=== PATIENT | male | born 1950 | race Caucasian/White ===

== ENCOUNTER 2020-09-25 15:57 | Observation (INO) ==
[2020-09-25] MEDS ORDERED: niCARdipine 25 MG in SODIUM CHLORIDE 0.9% 240 ML IV PRN (16:09)
[2020-09-25 16:30] LABS: Basophils # (auto) 0.02 K/uL (0-0.2); Basophils % (auto) 0.2 %; Eosinophils # (auto) 0.14 K/uL (0-0.5); Eosinophils % (auto) 1.5 %; Hematocrit (blood only) 42.6 % (42-52); Hemoglobin 14.4 g/dL (14.0-18.0); Immature Granulocytes # (auto) 0.02 K/uL (0.00-0.02); Immature Granulocytes % (auto) 0.2 %; Lymphocytes # (auto) 2.56 K/uL (1.2-3.4); Lymphocytes % (auto) 26.8 %; Mean Corpuscular Hgb Conc 33.8 g/dL (32-36); Mean Corpuscular Volume 94.7 fL (80-100); Mean Platelet Volume 10.1 fL (7.4-10.4); Monocytes # (auto) 0.68 K/uL (0.11-0.59); Monocytes % (auto) 7.1 %; Neutrophils # (auto) 6.14 K/uL (1.4-6.5); Neutrophils % (auto) 64.2 %; Platelet Count 265 K/uL (130-400); RDW Coefficient of Variation 13.4 % (11.5-14.5); RDW Standard Deviation 46.5 fL (36.4-46.3); White Blood Count 9.56 K/uL (4.8-10.8)
--- NOTE | 2020-09-25 16:37 | XRay Report ---
XR chest 1V portable CLINICAL HISTORY: Stroke Like Symptoms COMPARISON STUDY: Chest CT July 01, 2020. FINDINGS: Mild elevation of the left hemidiaphragm is unchanged. There are median sternotomy wires an d mediastinal surgical clips. Cardiomegaly is noted. There is no evidence for pulmonary edema. Mild l eft basilar opacity favors atelectasis. IMPRESSION: 1. Moderate cardiomegaly. No evidence for pulmonary edema. 2. Mild left basilar opacity favors atelectasis. ACT 112: Negative or not required by law. Electronically signed by: Brannon Padilla M.D. 09/25/2020 4:36 PM
[2020-09-25 16:43] LABS: Partial Thromboplastin Ratio 0.9; Partial Thromboplastin Time 24.9 Seconds (21.0-31.0); Prothrombin Time 10.1 Seconds (9.0-12.0)
[2020-09-25 16:47] LABS: Alanine Aminotransferase 39 U/L (12-78); Albumin Level 3.2 gm/dl (3.4-5.0); Aspartate Aminotransferase 20 U/L (15-37); BUN Creatinine Ratio 22.4 (10-20); Blood Urea Nitrogen 31 mg/dl (7-18); Calcium 8.2 mg/dl (8.5-10.1); Carbon Dioxide 27 mmol/L (21-32); Chloride 114 mmol/L (98-107); Creatinine Clr Calc Pharmacy 56.7 ml/min; Est GFR (African American) 58.6 ml/min; Est GFR (Non-African American) 50.5 ml/min; Glucose 149 mg/dl (70-99); Magnesium 2.3 mg/dl (1.8-2.4); Potassium 4.6 mmol/L (3.5-5.1); Sodium 143 mmol/L (136-145)
[2020-09-25 16:54] LABS: Albumin Globulin Ratio 1.1 (0.9-2); Alkaline Phosphatase 63 U/L (45-117); Bilirubin,Total 0.4 mg/dl (0.2-1); Creatine Kinase 40 U/L (39-308); Creatine Kinase MB 1.1 ng/ml (0.5-3.6); Globulin 2.8 gm/dl (2.5-4.0); Troponin I < 0.015 ng/ml (0-0.045)
[2020-09-25] MEDS ORDERED: SODIUM CHLORIDE 0.9% 1000ML 500 ML IV ONE (16:55)
--- NOTE | 2020-09-25 16:55 | Emergency Department Note ---
Impression & Plan Prostate cancer, Bradycardia, Dizziness ED Provider Note NAME: MARIELA ARMENTA AGE: 70 SEX: M : 1950 ARRIVES VIA: Walk-In INFORMANT: Patient, ED PROVIDER(S): Jose Alberto Mccoy MD CHIEF COMPLAINT: Syncopal episode HPI: This is a 70-year-old male who presents emergency department complaining of having a syncopal episode earlier today. The patient was having a procedure with his prostate. He took 2 mg of lorazepam and 2 Percocet at 8 AM however he has remained lethargic throughout the day with pulse ox is in the 80s. His pulse rate has also been jumping all around from the 60s down to the 40s. He was given a liter of saline in oncology. He is also on metoprolol which he took this morning. Upon arrival to the emergency department the patient was ambulated however he is incredibly shaky. He does report eating today. He denies any chest pain or shortness of breath. ROS: See above HPI for pertinent positives & negatives. A total of 10 systems reviewed and were otherwise negative. PAST MEDICAL HISTORY: See Below PAST SURGICAL HISTORY: See Below FAMILY HISTORY: See Below SOCIAL HISTORY: See Below HOME MEDICATIONS: See Below ALLERGIES: See Below VITALS: See Below PHYSICAL EXAMINATION: VITAL SIGNS - Vital signs and nursing notes were reviewed. GENERAL - 70-year-old male appearing stated age who is in no acute distress. Communicates well with provider and answers questions appropriately. SKIN - Without rashes. HEAD - NC/AT. EYES - PERRL with EOMI bilaterally. Sclera anicteric. Palpebral conjunctiva pink and moist with no injection noted. EARS - No deformities of external structures noted on gross examination bilaterally. NOSE - Midline and without cyanosis. No epistaxis or purulent drainage noted. Septum midline without deviation or septal hematoma noted. MOUTH/OROPHARYNX - Without perioral cyanosis. Buccal mucosa pink and moist and without leukoplakia. Tongue midline with equal elevation of palate bilaterally. No tonsillar hypertrophy, erythema, or exudates noted. NECK - Neck with FROM. Supple to palpation. No nuchal rigidity. LUNGS - Chest wall symmetric without accessory muscle use, intercostals retractions, or central cyanosis. Normal vesicular breath sounds CTA B/L. No wheezes, rales, or rhonchi appreciated. CARDIAC - RRR with S1/S2. No murmur, rubs, or gallops appreciated. ABDOMEN - Abdominal contour without pulsations or visible masses. BS normoactive all four quadrants. No tenderness, palpable masses, hepatosplenome milo, or ascites noted. EXTREMITIES - No clubbing or peripheral cyanosis. No pretibial edema present. +3/5 radial, posterior tibial, and dorsalis pedis pulses palpated throughout. +5/5 strength noted in UE/LE bilaterally. NEUROLOGIC - Cranial nerves II through XII grossly intact. Sensory intact to light touch throughout. Patellar reflexes +2/4. PSYCH - A&Ox3 and cooperates fully with examiner. Pt is very pleasant and interacts well with examiner. MEDICAL DECISION MAKING: Patient was seen and evaluated as above in room A9. Review was performed of nursing notes and vital signs. I did review pertinent previous visits and patient history. After obtaining a thorough history and physical examination the above work up was performed. There is a 7-year-old male who presents emergency department complaining of syncopal episode. The patient was ambulated by myself as well as staff and did very poorly. He is complaining of feeling dizzy. Because of the patient's high blood pressure when he first arrived he was sent for CT of the head as well as CTA. This does not show any evidence of acute process. I did discuss the case with the hospitalist service who did agree to admit the patient. I will note the patient does not have an elevation his white blood cell count and his cox test is negative. An order was placed for continuous cardiac monitoring. The monitor shows a rate of 54 with Sinus Bradycardia rhythm. The patient was evaluated during a period of high volume and high acuity during the global COVID-19 pandemic, and that diagnosis was suspected/considered upon heir initial presentation. Their evaluation, treatment and testing was consistent with current guidelines for patients who present with complaints or symptoms that may be related to COVID-19. Patient was seen while provider was wearing PPE. Triage Nursing notes reviewed. Prior medical records reviewed Vital Signs: reviewed and remarkable for no significant abnormalities Differential diagnosis: Benign hypertension, hypertensive emergency, cardiovascular pathology, toxicologic, pheochromocytoma, electrolyte abnormality, renal disease, endorgan damage, as well as other pathologies. ER treatment provided: See below Diagnostics interpreted by me: ECG: Sinus bradycardia QTC is 432 ventricular rate is [address] elevation or depression. EKG is compared to 03/11/2011 ventricular rate has decreased by 12 Laboratory studies: As stated above and show below. 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 Sister , Passed age 75 of "heart complications" No problems noted. Son No problems noted. Daughter No problems noted. Social History Smoking Status: Former smoker Tobacco Type: Cigarettes packs per day: 1; Years Smoked: 45; Cigarettes Per Day: 1PPD Smoker/quit 4 years ago; Smoking End Date: 4 years ago; Second Hand Exposure: No; Tobacco Cessation Education Requested by Patient: No Hx Alcohol Use: Yes Alcohol type: beer and wine Alcohol Intake Frequency: 2-3 x/Week Hx Substance Use: No Preferred Language: Kyrgyz Visual Impairment: No Limitations Hearing Ability: Hard of Hearing Salary And Wage Administrator Required: No Beliefs That Will Affect Care: None marital status: Current Living Situation: Spouse Current Living Situation Comment: Lives at home w/ Spouse current occupational status: retired current occupation: Retired [employer] Other Information That Helps Us Care for You: No Feels Safe at Home: Yes Safety Concerns: Feels Safe At This Time Childhood Exposure to Second-Hand Smoke: Yes (Father smoked in home ) caffeine: No during the past year weight has: remained stable Dental Care, Regularly: Yes Assistive Devices: Contacts Assistive Devices Comment: Does not have BL hearing aids w/ him at this time Allergies Allergies Allergy/AdvReac Type Severity Reaction Status Date / Time No Known Allergies Allergy Verified 09/25/20 16:55 Home Meds Home Medications Medication Instructions Recorded Confirmed aspirin 81 mg tablet,delayed 81 mg PO .ON HOLD 06/24/20 09/25/20 release atorvastatin 80 mg tablet 80 mg PO QPM 06/24/20 09/25/20 coenzyme Q10 200 mg capsule 200 mg PO DAILY 06/24/20 09/25/20 lisinopril 10 mg tablet 10 mg PO DAILY 06/24/20 09/25/20 metoprolol tartrate 25 mg tablet 25 mg PO BID 06/24/20 09/25/20 multivitamin 1 tab PO DAILY 06/24/20 09/25/20 tamsulosin 0.4 mg capsule 0.4 mg PO DAILY 06/24/20 09/25/20 fluorouracil 5 % topical cream 1 applic TOPICAL BID PRN 08/14/20 09/25/20 omega [id number]-[id number]-fish oil 100 1 cap PO DAILY cap 08/14/20 09/25/20 mg-160 mg-1,000 mg capsule Results & Data (ED) Vital Signs Vital Signs - 24 hr 09/25/20 16:00 09/25/20 16:02 09/25/20 16:10 Pulse Rate 46 L 48 L 51 L Pulse Rate from SpO2 Sensor 47 L 51 L 48 L Respiratory Rate 21 18 18 Blood Pressure 193/102 H 193/102 H Blood Pressure Mean 132 132 Pulse Oximetry 95 92 97 Oxygen Delivery Method Room Air Sepsis Recent Fever Within 48 Hours No Sepsis New/Unexplained Change in Mental Status No Sepsis Action Taken by Nursing No Action Required 09/25/20 16:20 09/25/20 16:21 09/25/20 16:30 Pulse Rate 58 L 53 L 53 L Pulse Rate from SpO2 Sensor 59 L 54 L 57 L Respiratory Rate 20 14 18 Blood Pressure 135/80 126/74 Blood Pressure Mean 98 91 Pulse Oximetry 96 95 97 Oxygen Delivery Method Sepsis Recent Fever Within 48 Hours Sepsis New/Unexplained Change in Mental Status Sepsis Action Taken by Nursing 09/25/20 16:31 09/25/20 16:40 09/25/20 16:50 Pulse Rate 56 L 54 L 54 L Pulse Rate from SpO2 Sensor 59 L 53 L 54 L Respiratory Rate 19 16 14 Blood Pressure Blood Pressure Mean Pulse Oximetry 96 97 94 Oxygen Delivery Method Sepsis Recent Fever Within 48 Hours Sepsis New/Unexplained Change in Mental Status Sepsis Action Taken by Nursing 09/25/20 17:00 09/25/20 17:01 09/25/20 17:43 Pulse Rate 47 L 57 L 69 Pulse Rate from SpO2 Sensor 50 L 57 L Respiratory Rate 18 16 20 Blood Pressure 141/82 H Blood Pressure Mean 101 Pulse Oximetry 97 96 Oxygen Delivery Method Sepsis Recent Fever Within 48 Hours Sepsis New/Unexplained Change in Mental Status Sepsis Action Taken by Nursing 09/25/20 17:50 09/25/20 17:56 09/25/20 18:00 Pulse Rate 63 62 62 Pulse Rate from SpO2 Sensor 69 62 Respiratory Rate 22 22 17 Blood Pressure 159/84 H 162/84 H Blood Pressure Mean 109 110 Pulse Oximetry 94 97 Oxygen Delivery Method Sepsis Recent Fever Within 48 Hours Sepsis New/Unexplained Change in Mental Status Sepsis Action Taken by Nursing 09/25/20 18:01 09/25/20 18:10 09/25/20 18:20 Pulse Rate 61 59 L 51 L Pulse Rate from SpO2 Sensor 61 60 54 L Respiratory Rate 17 15 14 Blood Pressure Blood Pressure Mean Pulse Oximetry 97 96 95 Oxygen Delivery Method Sepsis Recent Fever Within 48 Hours Sepsis New/Unexplained Change in Mental Status Sepsis Action Taken by Nursing 09/25/20 18:30 09/25/20 18:31 09/25/20 18:40 Pulse Rate 61 60 52 L Pulse Rate from SpO2 Sensor 60 61 52 L Respiratory Rate 18 16 13 Blood Pressure 157/71 H Blood Pressure Mean 99 Pulse Oximetry 97 97 95 Oxygen Delivery Method Sepsis Recent Fever Within 48 Hours Sepsis New/Unexplained Change in Mental Status Sepsis Action Taken by Nursing 09/25/20 18:50 09/25/20 19:00 09/25/20 19:01 Pulse Rate 52 L 78 57 L Pulse Rate from SpO2 Sensor 55 L 64 66 Respiratory Rate 20 17 16 Blood Pressure 153/79 H Blood Pressure Mean 103 Pulse Oximetry 96 98 98 Oxygen Delivery Method Sepsis Recent Fever Within 48 Hours Sepsis New/Unexplained Change in Mental Status Sepsis Action Taken by Nursing 09/25/20 19:10 09/25/20 19:20 Pulse Rate 57 L 48 L Pulse Rate from SpO2 Sensor 57 L 49 L Respiratory Rate 19 16 Blood Pressure Blood Pressure Mean Pulse Oximetry 94 95 Oxygen Delivery Method Sepsis Recent Fever Within 48 Hours Sepsis New/Unexplained Change in Mental Status Sepsis Action Taken by Nursing Laboratory Data Result diagrams: 09/25/20 16:20 09/25/20 16:20 Lab Results 09/25/20 09/25/20 09/25/20 Range/Units 16:17 16:20 16:20 WBC 9.56 (4.8-10.8) K/uL RBC 4.50 L (4.7-6.1) M/uL Hgb 14.4 (14.0-18.0) g/dL Hct 42.6 (42-52) % MCV 94.7 (80-100) fL MCH 32.0 (25-34) pg MCHC 33.8 (32-36) g/dL RDW Std Deviation 46.5 H (36.4-46.3) fL RDW Coeff of Sofiya 13.4 (11.5-14.5) % Plt Count 265 (130-400) K/uL MPV 10.1 (7.4-10.4) fL Immature Gran % (Auto) 0.2 % Neut % (Auto) 64.2 % Lymph % (Auto) 26.8 % [place] % (Auto) 7.1 % Eos % (Auto) 1.5 % Baso % (Auto) 0.2 % Neut # (Auto) 6.14 (1.4-6.5) K/uL Lymph # (Auto) 2.56 (1.2-3.4) K/uL [place] # (Auto) 0.68 H (0.11-0.59) K/uL Eos # (Auto) 0.14 (0-0.5) K/uL Baso # (Auto) 0.02 (0-0.2) K/uL Immature Gran # (Auto) 0.02 (0.00-0.02) K/uL PT 10.1 (9.0-12.0) Seconds INR 1.0 (0.9-1.1) APTT 24.9 (21.0-31.0) Seconds PTT Ratio 0.9 Sodium (136-145) mmol/L Potassium (3.5-5.1) mmol/L Chloride (98-107) mmol/L Carbon Dioxide (21-32) mmol/L Anion Gap (3-11) BUN (7-18) mg/dl Creatinine (0.6-1.4) mg/dl Est Cr Clr Drug Dosing ml/min Est GFR ( Amer) ml/min Est GFR (Non-Af Amer) ml/min BUN/Creatinine Ratio (10-20) Glucose (70-99) mg/dl POC Glucose 149 H (70-99) mg/dl Calcium (8.5-10.1) mg/dl Magnesium (1.8-2.4) mg/dl Total Bilirubin (0.2-1) mg/dl AST (15-37) U/L ALT (12-78) U/L Alkaline Phosphatase (45-117) U/L Total Creatine Kinase (39-308) U/L CK-MB (CK-2) (0.5-3.6) ng/ml CK/CKMB % Calc (0-3.0) Troponin I (0-0.045) ng/ml Total Protein (6.4-8.2) gm/dl Albumin (3.4-5.0) gm/dl Globulin (2.5-4.0) gm/dl Albumin/Globulin Ratio (0.9-2) COVID-19 Eval Order SARS-CoV-2 (PCR) (Negative) 09/25/20 09/25/20 09/25/20 Range/Units 16:20 16:20 16:20 WBC (4.8-10.8) K/uL RBC (4.7-6.1) M/uL Hgb (14.0-18.0) g/dL Hct (42-52) % MCV (80-100) fL MCH (25-34) pg MCHC (32-36) g/dL RDW Std Deviation (36.4-46.3) fL RDW Coeff of Sofiya (11.5-14.5) % Plt Count (130-400) K/uL MPV (7.4-10.4) fL Immature Gran % (Auto) % Neut % (Auto) % Lymph % (Auto) % [place] % (Auto) % Eos % (Auto) % Baso % (Auto) % Neut # (Auto) (1.4-6.5) K/uL Lymph # (Auto) (1.2-3.4) K/uL [place] # (Auto) (0.11-0.59) K/uL Eos # (Auto) (0-0.5) K/uL Baso # (Auto) (0-0.2) K/uL Immature Gran # (Auto) (0.00-0.02) K/uL PT (9.0-12.0) Seconds INR (0.9-1.1) APTT (21.0-31.0) Seconds PTT Ratio Sodium 143 (136-145) mmol/L Potassium 4.6 (3.5-5.1) mmol/L Chloride 114 H (98-107) mmol/L Carbon Dioxide 27 (21-32) mmol/L Anion Gap 2.0 L (3-11) BUN 31 H (7-18) mg/dl Creatinine 1.40 (0.6-1.4) mg/dl Est Cr Clr Drug Dosing 56.7 ml/min Est GFR ( Amer) 58.6 ml/min Est GFR (Non-Af Amer) 50.5 ml/min BUN/Creatinine Ratio 22.4 H (10-20) Glucose 149 H (70-99) mg/dl POC Glucose (70-99) mg/dl Calcium 8.2 L (8.5-10.1) mg/dl Magnesium 2.3 (1.8-2.4) mg/dl Total Bilirubin 0.4 (0.2-1) mg/dl AST 20 (15-37) U/L ALT 39 (12-78) U/L Alkaline Phosphatase 63 (45-117) U/L Total Creatine Kinase 40 (39-308) U/L CK-MB (CK-2) 1.1 (0.5-3.6) ng/ml CK/CKMB % Calc 2.8 (0-3.0) Troponin I < 0.015 (0-0.045) ng/ml Total Protein 6.0 L (6.4-8.2) gm/dl Albumin 3.2 L (3.4-5.0) gm/dl Globulin 2.8 (2.5-4.0) gm/dl Albumin/Globulin Ratio 1.1 (0.9-2) COVID-19 Eval Order Covid19 at [facility] [place] SARS-CoV-2 (PCR) NEGATIVE (Negative) Administered Medications Atorvastatin Calcium (Atorvastatin 40 Mg Tab) 80 mg PO QPM LEBRON Stop: 06/19/21 20:59 Last Admin: 09/25/20 21:12 Dose: 80 mg Documented by: [id number] Discontinued Medications Sodium Chloride (Nss 1000ml) 500 mls @ 999 mls/hr IV .Q31M ONE Stop: 09/25/20 17:25 Last Infusion: 09/25/20 17:30 Dose: 999 mls/hr Documented by: [id number] Admin: 09/25/20 16:57 Dose: 999 mls/hr Documented by: [id number] Ioversol (Optiray 350 500ml) 114 ml IV ONCE ONE Stop: 09/25/20 17:25 Last Admin: 09/25/20 17:34 Dose: 114 ml Documented by: [id number] Imaging Data Radiologist's Impression: Chest X-Ray 09/25/20 16:09 XR chest 1V portable CLINICAL HISTORY: Stroke Like Symptoms COMPARISON STUDY: Chest CT July 01, 2020. FINDINGS: Mild elevation of the left hemidiaphragm is unchanged. There are median sternotomy wires and mediastinal surgical clips. Cardiomegaly is noted. There is no evidence for pulmonary edema. Mild left basilar opacity favors atelectasis. IMPRESSION: 1. Moderate cardiomegaly. No evidence for pulmonary edema. 2. Mild left basilar opacity favors atelectasis. ACT 112: Negative or not required by law. Electronically signed by: Brannon Padilla M.D. 09/25/2020 4:[address] 09/25/20 16:09 CT head/brain wo con CLINICAL HISTORY: 70 years-old Male with Stroke Like Symptoms. Acute strokelike symptoms TECHNIQUE: Multiple axial CT images of the head were obtained without contrast. A dose lowering technique was utilized adhering to the principles of ALARA. COMPARISON: CTA head and neck of same day, brain MRI 03/12/2019 FINDINGS: No acute intracranial hemorrhage, midline shift, intracranial mass, hydrocephalus, territorial ischemia or abnormal extra-axial collection. Mild atrophy. White matter hypodensities suggest chronic microvascular ischemic disease. The calvarium is intact. The paranasal sinuses, mastoid air cells, and middle ear cavities are clear. IMPRESSION: No acute intracranial abnormality. ACT 112: Negative or not required by law. The above report was generated using voice recognition software. It may contain grammatical, syntax or spelling errors. Electronically signed by: Dragan Whipple M.D. 09/25/2020 5:44 PM Head CTA 09/25/20 16:09 CT angio neck with con, CT angio head w con CLINICAL HISTORY: 70 years-old Male with Stroke Like Symptoms. Acute strokelike symptoms COMPARISON STUDY: Head CT of same day TECHNIQUE: Following the IV administration of 114 mL of Optiray, CT angiogram of the head and neck was performed from the aortic arch to the skull apex. Images are reviewed in the axial, sagittal, and coronal planes. 3-D MIPS images are created and assessed. IV contrast was administered without complication. All measurements were calculated based on NASCET criteria. A dose lowering technique was utilized adhering to the principles of ALARA. CT DOSE: 1500.61 mGy.cm FINDINGS: Prior median sternotomy. Atherosclerotic plaque the thoracic aortic arch and proximal great vessels. Patency of the innominate and imaged subclavian arteries. The common carotid arteries are patent. Moderate atherosclerotic plaque of the carotid bulbs and proximal cervical segments of the carotid arteries results in less than 50% stenosis bilaterally. Atherosclerotic plaque with tortuosity involves the distal cervical segment left ICA. Calcified plaque of the cavernous and supraclinoid segments without high-grade stenosis. The middle and anterior cerebral arteries are patent. Diminutive right A1 segment, likely developmental. Calcified plaque at the origin of the vertebral arteries and mild right and moderate left artery narrowing noted. Mild narrowing of the V2 segment right vertebral artery at the level C5-C6 secondary to uncovertebral spurring and facet arthrosis, image 159. The basilar and posterior cerebral arteries are patent. Portal venous sinuses are patent. There is no abnormal intracranial enhancement. Lung apices are clear. No pneumothorax. Multinodular thyroid. Streak artifact from dental amalgam hardware. Mild mucoperiosteal thickening of the maxillary sinuses. Mastoid air cells are clear. IMPRESSION: 1. No aneurysm, dissection, high-grade stenosis or arterial occlusion identified. 2. Atherosclerotic vascular disease as above. ACT 112: Negative or not required by law. The above report was generated using voice recognition software. It may contain grammatical, syntax or spelling errors. Electronically signed by: Dragan Whipple M.D. 09/25/2020 6:01 PM Neck CTA 09/25/20 16:09 CT angio neck with con, CT angio head w con CLINICAL HISTORY: 70 years-old Male with Stroke Like Symptoms. Acute strokelike symptoms COMPARISON STUDY: Head CT of same day TECHNIQUE: Following the IV administration of 114 mL of Optiray, CT angiogram of the head and neck was performed from the aortic arch to the skull apex. Images are reviewed in the axial, sagittal, and coronal planes. 3-D MIPS images are created and assessed. IV contrast was administered without complication. All measurements were calculated based on NASCET criteria. A dose lowering technique was utilized adhering to the principles of ALARA. CT DOSE: 1500.61 mGy.cm FINDINGS: Prior median sternotomy. Atherosclerotic plaque the thoracic aortic arch and proximal great vessels. Patency of the innominate and imaged subclavian arteries. The common carotid arteries are patent. Moderate atherosclerotic plaque of the carotid bulbs and proximal cervical segments of the carotid arteries results in less than 50% stenosis bilaterally. Atherosclerotic plaque with tortuosity involves the distal cervical segment left ICA. Calcified plaque of the cavernous and supraclinoid segments without high-grade stenosis. The middle and anterior cerebral arteries are patent. Diminutive right A1 segment, likely developmental. Calcified plaque at the origin of the vertebral arteries and mild right and moderate left artery narrowing noted. Mild narrowing of the V2 segment right vertebral artery at the level C5-C6 secondary to uncovertebral spurring and facet arthrosis, image 159. The basilar and posterior cerebral arteries are patent. Portal venous sinuses are patent. There is no abnormal intracranial enhancement. Lung apices are clear. No pneumothorax. Multinodular thyroid. Streak artifact from dental amalgam hardware. Mild mucoperiosteal thickening of the maxillary sinuses. Mastoid air cells are clear. IMPRESSION: 1. No aneurysm, dissection, high-grade stenosis or arterial occlusion identified. 2. Atherosclerotic vascular disease as above. ACT 112: Negative or not required by law. The above report was generated using voice recognition software. It may contain grammatical, syntax or spelling errors. Electronically signed by: Dragan Whipple M.D. 09/25/2020 6:01 PM Discharge Plan Visit Data Chief Complaint: Bradycardia ED Provider: Jose Alberto Mccoy Discharge Problem: Prostate cancer, Bradycardia, Dizziness Patient Disposition: Admitted As Inpatient Discharge Instructions Interventions: ED Discharge Assessment Last Done: 09/25/20 21:07
[2020-09-25] MEDS ORDERED: OPTIRAY 350 500ml IV ONE (17:24)
--- NOTE | 2020-09-25 17:53 | CT Scan Report ---
CT head/brain wo con CLINICAL HISTORY: 70 years-old Male with Stroke Like Symptoms. Acute strokelike symptoms TECHNIQUE: Multiple axial CT images of the head were obtained without contrast. A dose lowering tech nique was utilized adhering to the principles of ALARA. COMPARISON: CTA head and neck of same day, brain MRI 03/12/2019 FINDINGS: No acute intracranial hemorrhage, midline shift, intracranial mass, hydrocephalus, territorial ischem ia or abnormal extra-axial collection. Mild atrophy. White matter hypodensities suggest chronic micro vascular ischemic disease. The calvarium is intact. The paranasal sinuses, mastoid air cells, and middle ear cavities are clear . IMPRESSION: No acute intracranial abnormality. ACT 112: Negative or not required by law. The above report was generated using voice recognition software. It may contain grammatical, syntax o r spelling errors. Electronically signed by: Dragan Whipple M.D. 09/25/2020 5:44 PM
--- NOTE | 2020-09-25 18:03 | CT Scan Report ---
CT angio neck with con, CT angio head w con CLINICAL HISTORY: 70 years-old Male with Stroke Like Symptoms. Acute strokelike symptoms COMPARISON STUDY: Head CT of same day TECHNIQUE: Following the IV administration of 114 mL of Optiray, CT angiogram of the head and neck wa s performed from the aortic arch to the skull apex. Images are reviewed in the axial, sagittal, and c oronal planes. 3-D MIPS images are created and assessed. IV contrast was administered without complic ation. All measurements were calculated based on NASCET criteria. A dose lowering technique was util ized adhering to the principles of ALARA. CT DOSE: 1500.61 mGy.cm FINDINGS: Prior median sternotomy. Atherosclerotic plaque the thoracic aortic arch and proximal great vessels. Patency of the innominate and imaged subclavian arteries. The common carotid arteries are p atent. Moderate atherosclerotic plaque of the carotid bulbs and proximal cervical segments of the car otid arteries results in less than 50% stenosis bilaterally. Atherosclerotic plaque with tortuosity i nvolves the distal cervical segment left ICA. Calcified plaque of the cavernous and supraclinoid segm ents without high-grade stenosis. The middle and anterior cerebral arteries are patent. Diminutive ri ght A1 segment, likely developmental. Calcified plaque at the origin of the vertebral arteries and mi ld right and moderate left artery narrowing noted. Mild narrowing of the V2 segment right vertebral a rtery at the level C5-C6 secondary to uncovertebral spurring and facet arthrosis, image 159. The basi lar and posterior cerebral arteries are patent. Portal venous sinuses are patent. There is no abnorma l intracranial enhancement. Lung apices are clear. No pneumothorax. Multinodular thyroid. Streak artifact from dental amalgam connor dware. Mild mucoperiosteal thickening of the maxillary sinuses. Mastoid air cells are clear. IMPRESSION: 1. No aneurysm, dissection, high-grade stenosis or arterial occlusion identified. 2. Atherosclerotic vascular disease as above. ACT 112: Negative or not required by law. The above report was generated using voice recognition software. It may contain grammatical, syntax o r spelling errors. Electronically signed by: Dragan Whipple M.D. 09/25/2020 6:01 PM
--- NOTE | 2020-09-25 19:20 | History & Physical Report ---
Date of Service September 25, 2020 Assessment & Plan (1) Bradycardia: Patient reports that his HR is normally 60-70's - Rate is variable as above 40-70's, no variation in BP - activity or movement associated increase is short lived - Peripheral pulses stable - Vagal stimulation from hydrogel insertion possible - Follow through PM on telemetry (2) Hyperlipidemia: Continue atorvastatin 80mg (3) HTN (hypertension): Follow through Pm if stable can reintroduce BB Continue SABINE (4) Prostate cancer: As per HPI, primary following with Urology- status post spaceOAR - Follow for any infection, bleeding - Hold Tamsulosin for tomorrow, can restart if stable hemodynamics. - Follow up with urology in morning if patient remains in house for post procedure care (5) CAD (coronary artery disease): ASA on hold for procedure today - Continue statin - Continue BB as tolerated - Continue SABINE History of Present Illness Primary Care Provider: Rodri Cruz MD 70 YOM with past medical history of 3v CABG, AAA, CAD, HTN, HLD, Prostate Cancer, he was at radiation oncology today to get spaceOAR hydrogel to his prostate. For his procedure today, he took his Metoprolol 25 mg this morning and his lisinopril, he had 2mg of Lorazepam, and 2 Percocet, at this morning prior to the procedure. He was in recovery being monitored for bradycardia 40- 50s and was clammy and somewhat lethargic. He reportedly did not improve as the day went on and his varied from 40-60s, so he was transferred to the ER. He had a CTA of this chest and neck performed as well as a head CT and chest X-Ray. Telemetry was reviewed in the EMD that does not show any blocks, or pauses, but variable rate 50-70 without ectopy. His rate is responsive to activity up to 70s, but drops back down to the 60s. He was able to stand up and walk around with me without any flushing, or feeling like he was going to pass out, but did have some mild dizziness. He will be observed overnight on telemetry. He has recently been diagnosed with [place] 3+4 PSA6.44 cT1c prostate cancer. He is followed by Dr. Cavanaugh and was planning on progression of SBRT. Allergies Allergy/AdvReac Type Severity Reaction Status Date / Time No Known Allergies Allergy Verified 09/25/20 16:55 Home Medications Medication Instructions Recorded Confirmed Type aspirin 81 mg tablet,delayed 81 mg PO .ON HOLD 06/24/20 09/25/20 History release atorvastatin 80 mg tablet 80 mg PO QPM 06/24/20 09/25/20 History coenzyme Q10 200 mg capsule 200 mg PO DAILY 06/24/20 09/25/20 History lisinopril 10 mg tablet 10 mg PO DAILY 06/24/20 09/25/20 History metoprolol tartrate 25 mg tablet 25 mg PO BID 06/24/20 09/25/20 History multivitamin 1 tab PO DAILY 06/24/20 09/25/20 History tamsulosin 0.4 mg capsule 0.4 mg PO DAILY 06/24/20 09/25/20 History fluorouracil 5 % topical cream 1 applic TOPICAL BID PRN 08/14/20 09/25/20 History omega 6-fhl-kfn-fish oil 100 1 cap PO DAILY cap 08/14/20 09/25/20 History mg-160 mg-1,000 mg capsule Past Med/Surg History Medical History (Updated 09/25/20 @ 20:16 by MICHAEL Cevallos) Abdominal aortic aneurysm Holm disease BPH (benign prostatic hyperplasia) CAD (coronary artery disease) Colon polyp Hearing loss bilat hearing aids HTN (hypertension) Hyperlipidemia Left ventricular hypertrophy Tinnitus Tobacco abuse history - not current Tremor Tricuspid regurgitation Umbilical hernia Surgical History H/O wisdom tooth extraction History of prostate biopsy (07/23/20) History of tonsillectomy and adenoidectomy as a child age 5 Hx of CABG (05/2006) Triple (Analy) Family History Father , Passed age 84 of unknown Prostate cancer, Onset Age: 60 Radiation then had recurrence and had prostatectomy Colon cancer, Onset Age: 75 Resection with Colostomy Mother , Passed age 83 of CHF No problems noted. Sister , Passed age 75 of "heart complications" No problems noted. Son No problems noted. Daughter No problems noted. 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 Feels Safe at Home: Yes Childhood Exposure to Second-Hand Smoke: Yes (Father smoked in home ) caffeine: No during the past year weight has: remained stable Dental Care, Regularly: Yes Review of Systems Review of Systems: REVIEW OF SYSTEMS: Constitutional: No fever, sweats or chills Eyes: No diplopia, no worsening or blurred vision ENT: normal hearing, no trouble swallowing Respiratory: No cough, sputum, dyspnea at rest or on exertion Cardiovascular: (+)dizziness, No chest pain, tightness or palpitations Abdomen: No pain, nausea, vomiting, diarrhea or constipation Musculoskeletal: No joint pain, calf pain, swelling Neurologic: No weakness, numbness/tingling, or balance problems Psychiatric: No anxiety or depression Skin: No rash or itch Physical Exam Physical Exam: PHYSICAL EXAM: General: awake, alert, no apparent distress, mildly sleepy Head: Normocephalic, atraumatic ENT: PERRL, EOMI, no pharyngeal exudate, mucous membranes moist Neuro: AAO x 3, speech clear and appropriate, strength intact bilaterally 5/5, sensation intact and equal all extremities and dermatomes, no pronator drift Chest: equal rise and fall of the chest, no accessory muscle use, no heaves or thrills, Clear to auscultation, on room air, Cardiac: Regular rate and rhythm, telemetry reviewed, skin warm dry, cap refill <3 seconds, peripheral pulses +2 no JVD, no murmur, no edema GI: NABS x 4 quadrants, soft, nontender to palpation, no rebound, guarding or tenderness : Spontaneously voiding, no pain, no CVA tenderness, Extremities: Normal inspection, no peripheral edema or erythema, calfs nontender to palpation Psych: Normal mood and affect Skin: no rash or erythema Results & Data Results & Data ([facility]) Vital Signs (Past 12 Hours) Vital Signs Pulse Resp BP Pulse Ox 09/25/20 18:10 59 L 15 96 09/25/20 18:01 61 17 97 09/25/20 18:00 62 17 162/84 H 97 09/25/20 17:56 62 22 159/84 H 09/25/20 17:50 63 22 94 09/25/20 17:43 69 20 09/25/20 17:01 57 L 16 96 09/25/20 17:00 47 L 18 141/82 H 97 09/25/20 16:50 54 L 14 94 09/25/20 16:40 54 L 16 97 09/25/20 16:31 56 L 19 96 09/25/20 16:30 53 L 18 126/74 97 09/25/20 16:21 53 L 14 135/80 95 09/25/20 16:20 58 L 20 96 09/25/20 16:10 51 L 18 97 09/25/20 16:02 48 L 18 193/102 H 92 09/25/20 16:00 46 L 21 193/102 H 95 Laboratory Results Abnormal lab results 09/25/20 09/25/20 09/25/20 Range/Units 16:17 16:20 16:20 RBC 4.50 L (4.7-6.1) M/uL RDW Std Deviation 46.5 H (36.4-46.3) fL [place] # (Auto) 0.68 H (0.11-0.59) K/uL Chloride 114 H (98-107) mmol/L Anion Gap 2.0 L (3-11) BUN 31 H (7-18) mg/dl BUN/Creatinine Ratio 22.4 H (10-20) Glucose 149 H (70-99) mg/dl POC Glucose 149 H (70-99) mg/dl Calcium 8.2 L (8.5-10.1) mg/dl Total Protein 6.0 L (6.4-8.2) gm/dl Albumin 3.2 L (3.4-5.0) gm/dl Diagnostic Findings Chest X-Ray 09/25/20 16:09 XR chest 1V portable CLINICAL HISTORY: Stroke Like Symptoms COMPARISON STUDY: Chest CT July 01, 2020. FINDINGS: Mild elevation of the left hemidiaphragm is unchanged. There are median sternotomy wires and mediastinal surgical clips. Cardiomegaly is noted. There is no evidence for pulmonary edema. Mild left basilar opacity favors atelectasis. IMPRESSION: 1. Moderate cardiomegaly. No evidence for pulmonary edema. 2. Mild left basilar opacity favors atelectasis. Electronically signed by: Brannon Padilla M.D. 09/25/2020 4:[address] 09/25/20 16:09 CT head/brain wo con CLINICAL HISTORY: 70 years-old Male with Stroke Like Symptoms. Acute strokelike symptoms TECHNIQUE: Multiple axial CT images of the head were obtained without contrast. A dose lowering technique was utilized adhering to the principles of ALARA. COMPARISON: CTA head and neck of same day, brain MRI 03/12/2019 FINDINGS: No acute intracranial hemorrhage, midline shift, intracranial mass, hydrocephalus, territorial ischemia or abnormal extra-axial collection. Mild atrophy. White matter hypodensities suggest chronic microvascular ischemic disease. The calvarium is intact. The paranasal sinuses, mastoid air cells, and middle ear cavities are clear. IMPRESSION: No acute intracranial abnormality. The above report was generated using voice recognition software. It may contain grammatical, syntax or spelling errors. Electronically signed by: Dragan Whipple M.D. 09/25/2020 5:44 PM Head CTA 09/25/20 16:09 CT angio neck with con, CT angio head w con CLINICAL HISTORY: 70 years-old Male with Stroke Like Symptoms. Acute strokelike symptoms COMPARISON STUDY: Head CT of same day TECHNIQUE: Following the IV administration of 114 mL of Optiray, CT angiogram of the head and neck was performed from the aortic arch to the skull apex. Images are reviewed in the axial, sagittal, and coronal planes. 3-D MIPS images are created and assessed. IV contrast was administered without complication. All measurements were calculated based on NASCET criteria. A dose lowering technique was utilized adhering to the principles of ALARA. CT DOSE: 1500.61 mGy.cm FINDINGS: Prior median sternotomy. Atherosclerotic plaque the thoracic aortic arch and proximal great vessels. Patency of the innominate and imaged subclavian arteries. The common carotid arteries are patent. Moderate atherosclerotic plaque of the carotid bulbs and proximal cervical segments of the carotid arteries results in less than 50% stenosis bilaterally. Atherosclerotic plaque with tortuosity involves the distal cervical segment left ICA. Calcified plaque of the cavernous and supraclinoid segments without high-grade stenosis. The middle and anterior cerebral arteries are patent. Diminutive right A1 segment, likely developmental. Calcified plaque at the origin of the vertebral arteries and mild right and moderate left artery narrowing noted. Mild narrowing of the V2 segment right vertebral artery at the level C5-C6 secondary to uncovertebral spurring and facet arthrosis, image 159. The basilar and posterior cerebral arteries are patent. Portal venous sinuses are patent. There is no abnormal intracranial enhancement. Lung apices are clear. No pneumothorax. Multinodular thyroid. Streak artifact from dental amalgam hardware. Mild mucoperiosteal thickening of the maxillary sinuses. Mastoid air cells are clear. IMPRESSION: 1. No aneurysm, dissection, high-grade stenosis or arterial occlusion identified. 2. Atherosclerotic vascular disease as above. ACT 112: Negative or not required by law. The above report was generated using voice recognition software. It may contain grammatical, syntax or spelling errors. Electronically signed by: Dragan Whipple M.D. 09/25/2020 6:01 PM Neck CTA 09/25/20 16:09 CT angio neck with con, CT angio head w con CLINICAL HISTORY: 70 years-old Male with Stroke Like Symptoms. Acute strokelike symptoms COMPARISON STUDY: Head CT of same day TECHNIQUE: Following the IV administration of 114 mL of Optiray, CT angiogram of the head and neck was performed from the aortic arch to the skull apex. Images are reviewed in the axial, sagittal, and coronal planes. 3-D MIPS images are created and assessed. IV contrast was administered without complication. All measurements were calculated based on NASCET criteria. A dose lowering technique was utilized adhering to the principles of ALARA. CT DOSE: 1500.61 mGy.cm FINDINGS: Prior median sternotomy. Atherosclerotic plaque the thoracic aortic arch and proximal great vessels. Patency of the innominate and imaged subclavian arteries. The common carotid arteries are patent. Moderate atherosclerotic plaque of the carotid bulbs and proximal cervical segments of the carotid arteries results in less than 50% stenosis bilaterally. Atherosclerotic plaque with tortuosity involves the distal cervical segment left ICA. Calcified plaque of the cavernous and supraclinoid segments without high-grade stenosis. The middle and anterior cerebral arteries are patent. Diminutive right A1 segment, likely developmental. Calcified plaque at the origin of the vertebral arteries and mild right and moderate left artery narrowing noted. Mild narrowing of the V2 segment right vertebral artery at the level C5-C6 secondary to uncovertebral spurring and facet arthrosis, image 159. The basilar and posterior cerebral arteries are patent. Portal venous sinuses are patent. There is no abnormal intracranial enhancement. Lung apices are clear. No pneumothorax. Multinodular thyroid. Streak artifact from dental amalgam hardware. Mild mucoperiosteal thickening of the maxillary sinuses. Mastoid air cells are clear. IMPRESSION: 1. No aneurysm, dissection, high-grade stenosis or arterial occlusion identified . 2. Atherosclerotic vascular disease as above. ACT 112: Negative or not required by law. The above report was generated using voice recognition software. It may contain grammatical, syntax or spelling errors. Electronically signed by: Dragan Whipple M.D. 09/25/2020 6:01 PM ECG Additional Comments: Normal sinus rhythm Left axis deviation Consider old inferoposterior AL Abnormal ECG Code Status & VTE Plan Code Status CODE: FULL VTE: SCDs VTE Prophylaxis Plan VTE Prophylaxis will be ordered: Yes Supervising Physician Co-Signing Physician Notes Patient was seen and examined independently I discussed the case with Aleksey RODRIGUEZ I reviewed pertinent past medical social family history and also the plan of care and agree with the plan of care. Patient was seen in his hospital room after transfer the floor he is feeling better his symptoms may be related to his pain medication he is administered during his procedure. He has no complaints or problems he is never had issues with bradycardia hypotension never been exposed to tach he had a previous Lyme disease concern which was tested and negative Examination awake alert [place] x3 cardiac exam is regular but slightly bradycardic lungs are clear neurological exam is nonfocal. Patient for possible medication effect or toxic encephalopathy from pain medications. Any exceptions will be noted below PG Care Time/CCT Total # of Minutes Spent Total Time Spent with Patient: Total time spent is greater than 50% in coordination of care (as documented) at patient's floor/unit and/or counseling patient: Coding Level of Care Code 29486 OBS Care - Level 3 Diagnoses Bradycardia R00.1 Hyperlipidemia E78.5 Hyperlipidemia type: unspecified HTN (hypertension) I10 Hypertension type: unspecified Prostate cancer C61 CAD (coronary artery disease) I25.10 Associated angina: without angina Coronary Disease-Associated Artery/Lesion type: [place] artery [place] vs. transplanted heart: [place] heart (1) CAD (coronary artery disease) Associated angina: without angina Coronary Disease-Associated Artery/Lesion type: [place] artery [place] vs. transplanted heart: [place] heart Qualified Code(s): I25.10 - Atherosclerotic heart disease of [place] coronary artery without angina pectoris (2) Hyperlipidemia Hyperlipidemia type: unspecified Qualified Code(s): E78.5 - Hyperlipidemia, unspecified (3) HTN (hypertension) Hypertension type: unspecified Qualified Code(s): I10 - Essential (primary) hypertension
[2020-09-25] MEDS ORDERED: ACETAMINOPHEN 325 MG TAB PO PRN (20:32)
[2020-09-25] MEDS ORDERED: ONDANSETRON INJ 2 MG/ML 2 ML VIAL IV PRN (20:32)
[2020-09-25] MEDS ORDERED: ATORVASTATIN 40 MG TAB PO SCH (21:00)
[2020-09-26 07:17] VITALS: TEMP 97.9
[2020-09-26] MEDS ORDERED: NON-FORMULARY MEDICATION (Coenzyme Q10 200 mg capsule) PO SCH (09:00)
[2020-09-26] MEDS ORDERED: lisinopril 10 MG TAB PO SCH (09:00)
[2020-09-26 11:28] VITALS: O2SAT 95
--- NOTE | 2020-09-26 11:29 | Electrocardiogram Report ---
Test Reason : Blood Pressure : / mmHG Vent. Rate : 057 BPM Atrial Rate : 057 BPM P-R Int : 168 ms QRS Dur : 096 ms QT Int : 444 ms P-R-T Axes : 076 013 043 degrees QTc Int : 432 ms Sinus bradycardia Otherwise normal ECG When compared with ECG of 11-MAR-2011 13:13, No significant change was found Confirmed by Ernesto Mae ([id number]) on 09/26/2020 11:28:34 AM Referred By: REFERRED SELF Confirmed By:Dylan Mae
--- NOTE | 2020-09-26 11:37 | Electrocardiogram Report ---
Test Reason : Blood Pressure : / mmHG Vent. Rate : 058 BPM Atrial Rate : 058 BPM P-R Int : 160 ms QRS Dur : 104 ms QT Int : 446 ms P-R-T Axes : 054 -11 026 degrees QTc Int : 437 ms Sinus bradycardia Otherwise normal ECG When compared with ECG of 25-SEP-2020 16:14, (unconfirmed) No significant change was found Confirmed by Ernesto Mae ([id number]) on 09/26/2020 11:37:18 AM Referred By: REFERRED SELF Confirmed By:Dylan Mae
[2020-09-26 14:47] VITALS: BP 169/89
[2020-09-26 16:42] VITALS: PULSE 54
--- NOTE | 2020-10-02 22:20 | Discharge Summary ---
Date of Service September 26, 2020 Admission HPI Per Admitting Provider 70 YOM with past medical history of 3v CABG, AAA, CAD, HTN, HLD, Prostate Cancer, he was at radiation oncology today to get spaceOAR hydrogel to his prostate. For his procedure today, he took his Metoprolol 25 mg this morning and his lisinopril, he had 2mg of Lorazepam, and 2 Percocet, at this morning prior to the procedure. He was in recovery being monitored for bradycardia 40- 50s and was clammy and somewhat lethargic. He reportedly did not improve as the day went on and his varied from 40-60s, so he was transferred to the ER. He had a CTA of this chest and neck performed as well as a head CT and chest X-Ray. Telemetry was reviewed in the EMD that does not show any blocks, or pauses, but variable rate 50-70 without ectopy. His rate is responsive to activity up to 70s, but drops back down to the 60s. He was able to stand up and walk around with me without any flushing, or feeling like he was going to pass out, but did have some mild dizziness. He will be observed overnight on telemetry. He has recently been diagnosed with Irene 3+4 PSA6.44 cT1c prostate cancer. He is followed by Dr. Cavanaugh and was planning on progression of SBRT. Principal Diagnosis Bradycardia Discharge Exam General: awake, alert, no apparent distress, mildly sleepy Head: Normocephalic, atraumatic ENT: PERRL, EOMI, no pharyngeal exudate, mucous membranes moist Neuro: AAO x 3, speech clear and appropriate, strength intact bilaterally 5/5, sensation intact and equal all extremities and dermatomes, no pronator drift Chest: equal rise and fall of the chest, no accessory muscle use, no heaves or thrills, Clear to auscultation, on room air, Cardiac: Regular rate and rhythm, telemetry reviewed, skin warm dry, cap refill <3 seconds, peripheral pulses +2 no JVD, no murmur, no edema GI: NABS x 4 quadrants, soft, nontender to palpation, no rebound, guarding or tenderness : Spontaneously voiding, no pain, no CVA tenderness, Extremities: Normal inspection, no peripheral edema or erythema, calfs nontender to palpation Psych: Normal mood and affect Skin: no rash or erythema Discharge Data Allergies Allergy/AdvReac Type Severity Reaction Status Date / Time No Known Allergies Allergy Verified 09/25/20 16:55 Consultations 09/25/20 19:08 ED Decision to Admit Stat Ordered Studies 09/25/20 16:09 CT angio head w con Stat CT angio neck with con Stat CT head/brain wo con Stat Hospital Course (1) Bradycardia: Patient reports that his HR is normally 60-70's - Rate is variable as above 40-70's, no variation in BP - activity or movement associated increase is short lived - Peripheral pulses stable - Vagal stimulation from hydrogel insertion possible - will recommend to withhold beta blockers given bradycardia will recommend you followup with Dr. Tillman. (2) Hyperlipidemia: Continue atorvastatin 80mg (3) HTN (hypertension): Follow through Pm if stable can reintroduce BB Continue SABINE (4) Prostate cancer: As per HPI, primary following with Urology- status post spaceOAR - Follow for any infection, bleeding - Hold Tamsulosin for tomorrow, can restart if stable hemodynamics. - Follow up with urology in morning if patient remains in house for post procedure care (5) CAD (coronary artery disease): ASA on hold for procedure today - Continue statin - Continue BB as tolerated - Continue SABINE Total Time Total Time Spent Total Time Spent (In Minutes): 32 Discharge Plan Discharge Items Patient Disposition: Home - Self-Care Reason For Visit: BRADYCARDIA Discharge Diagnosis: bradycardia Activity: Resume your previous activity Non-emergency contact: Primary Care Provider Call non-emergency contact if: you have any medication questions Follow-up/Referrals: Fer Tillman DO [Physician] - (Dr Tillman's office will contact you with an appointment. If you have not heard from them early next week, please call [phone].) Rodri Cruz MD [Primary Care Provider] - 09/29/20 10:10 am (Your appointment is with MICHAEL Teresa at the [facility].) Diet: Regular Fluids: 1800ml (7 cups) Addtl Attending Provider Instructions: You were foud to have a low heart rate. No cardiac markers were found in your blood work. You were monitored overnight, and your symptoms have subsided. At this moment, will hold off your beta jose guadalupe (metoprolol) which lowers your heart rate. Will recommend you followup with Dr. Tillman. Pending Studies at Discharge: No Stand-Alone Forms: My [facility], Smoking Cessation Medications and DC Order Prescriptions: Continued multivitamin Tablet 1 tab PO DAILY RF: 0 atorvastatin 80 mg tablet 80 mg PO QPM RF: 0 lisinopril 10 mg tablet 10 mg PO DAILY RF: 0 tamsulosin 0.4 mg capsule 0.4 mg PO DAILY RF: 0 coenzyme Q10 200 mg capsule 200 mg PO DAILY RF: 0 aspirin 81 mg tablet,delayed release (DR/EC) 81 mg PO .ON HOLD RF: 0 fluorouracil 5 % cream 1 applic topical BID PRN (Reason: ..) RF: 0 Fish Oil 100-160-1,000 mg capsule 1 cap PO DAILY RF: 0 Discontinued metoprolol tartrate 25 mg tablet 25 mg PO BID RF: 0 Discharge Orders: Discharge Order (Routine); Ordered 09/26/20 Ordered By: Darryl Rodarte Admission Data Admit Date/Time: 09/25/20 19:26 Attending Provider: Darryl Rodarte Admit Provider: Clive Medrano Primary Care Provider: Rodri Cruz Other Interventions: Discharge Summary Assessment (RN) Last Done: 09/26/20 14:42 Coding Level of Care Code 22790 OBS Care - Discharge Diagnoses Bradycardia R00.1 Hyperlipidemia E78.5 Hyperlipidemia type: unspecified HTN (hypertension) I10 Hypertension type: unspecified Prostate cancer C61 CAD (coronary artery disease) I25.10 Coronary Disease-Associated Artery/Lesion type: [place] artery [place] vs. transplanted heart: [place] heart Associated angina: without angina Time Spent (min) 32
== END 2020-09-26 16:00 | disposition home or self-care (01) ==
LOC: ED 15:57 → 2N 15:57 → SUATTDRO 19:26 → 2N 21:07
DX: R00.1 Bradycardia, unspecified; Z87.891 Personal history of nicotine dependence; Z79.899 Other long term (current) drug therapy; C61 Malignant neoplasm of prostate; R25.1 Tremor, unspecified; I25.10 Atherosclerotic heart disease of native coronary artery without angina pectoris; Z20.822 Contact with and (suspected) exposure to COVID-19; R55 Syncope and collapse; I10 Essential (primary) hypertension; E78.5 Hyperlipidemia, unspecified; Z95.1 Presence of aortocoronary bypass graft

== ENCOUNTER 2021-08-26 16:36 | Observation (INO) ==
[2021-08-26 17:18] LABS: Basophils # (auto) 0.03 K/uL (0-0.2); Basophils % (auto) 0.4 %; Eosinophils # (auto) 0.21 K/uL (0-0.5); Eosinophils % (auto) 2.6 %; Hematocrit (blood only) 38.4 % (42-52); Immature Granulocytes # (auto) 0.01 K/uL (0.00-0.02); Immature Granulocytes % (auto) 0.1 %; Lymphocytes # (auto) 1.07 K/uL (1.2-3.4); Lymphocytes % (auto) 13.2 %; Mean Corpuscular Hemoglobin 32.3 pg (25-34); Mean Corpuscular Hgb Conc 33.9 g/dL (32-36); Mean Corpuscular Volume 95.3 fL (80-100); Mean Platelet Volume 10.4 fL (7.4-10.4); Monocytes # (auto) 0.65 K/uL (0.11-0.59); Neutrophils # (auto) 6.14 K/uL (1.4-6.5); Neutrophils % (auto) 75.7 %; Platelet Count 247 K/uL (130-400); RDW Coefficient of Variation 13.7 % (11.5-14.5); RDW Standard Deviation 47.6 fL (36.4-46.3); Red Blood Count 4.03 M/uL (4.7-6.1); White Blood Count 8.11 K/uL (4.8-10.8)
[2021-08-26 17:32] LABS: Albumin Globulin Ratio 1.7 (0.9-2); Albumin Level 4.1 gm/dl (3.4-5.0); BUN Creatinine Ratio 25.3 (10-20); Bilirubin,Total 0.5 mg/dl (0.2-1.0); Calcium 9.2 mg/dl (8.5-10.1); Creatinine Clr Calc Pharmacy 43.1 ml/min; Est GFR (African American) 43.5 ml/min; Est GFR (Non-African American) 37.5 ml/min; Globulin 2.4 gm/dl (2.5-4.0); Magnesium 1.8 mg/dl (1.7-2.4); Potassium 4.6 mmol/L (3.5-5.1); Total Protein 6.5 gm/dl (6.0-8.3)
[2021-08-26] MEDS ORDERED: SODIUM CHLORIDE 0.9% 1000ML 1,000 ML IV ONE (17:56)
--- NOTE | 2021-08-26 17:59 | Emergency Department Note ---
Impression & Plan Syncope, Anemia, CHRIS (acute kidney injury), High serum chloride ED Provider Note NAME: MARIELA ARMENTA AGE: 71 SEX: M : 1950 ARRIVES VIA: Ambulance INFORMANT: Patient ED PROVIDER(S): Raghav Butt DO CHIEF COMPLAINT: syncope HPI: Patient is a 71-year-old male with a past medical history of CAD, hypertension, hyperlipidemia and prostate cancer presents the ER following working outside. He was raking leaves he became hot and sweaty. He went inside and while he was inside he went to go pee. He did not feel like he had to go pee or move his bowels but did because he went inside. He passed out going into the bathroom. ran in after she heard the thud. Shortly after that he started to wake back up. He passed back out again and was out for several minutes. She called EMS when she got off the phone which was about 5 minutes he was standing there. He notes he had no chest pain or shortness of breath prior to passing out. He did not bite his lip or urinate or move his bowels. She notes there was a little shaking when he passed out the second time but when he woke up he knew where he was and what was going on. ROS: See above HPI for pertinent positives & negatives. A total of 10 systems reviewed and were otherwise negative. PAST MEDICAL HISTORY:See Below PAST SURGICAL HISTORY:See Below FAMILY HISTORY:See Below SOCIAL HISTORY:See Below HOME MEDICATIONS:See Below ALLERGIES:See Below VITALS:See Below PHYSICAL EXAMINATION: GENERAL: Sitting up in bed, alert, well appearing, well nourished, no distress, non-toxic HEAD: NC/AT EYE EXAM: normal conjunctiva. PERRL and EOM's intact. OROPHARYNX: no exudate, no erythema, lips, buccal mucosa, and tongue normal and mucous membranes are moist NECK: supple, no nuchal rigidity, no adenopathy, non-tender LUNGS: Clear to auscultation. Normal chest wall mechanics HEART: no murmurs, S1 normal and S2 normal ABDOMEN: abdomen soft, non-tender, normo-active bowel sounds, no masses, no rebound or guarding. BACK: Back is symmetrical on inspection and there is no deformity, no midline tenderness, no CVA tenderness. SKIN: no rashes and no bruising UPPER EXTREMITIES: upper extremities are grossly normal. LOWER EXTREMITIES: No pitting edema. NEURO EXAM: Normal sensorium, cranial nerves II-XII intact, normal speech, no weakness of arms, no weakness of legs. MEDICAL DECISION MAKING: Patient is a 71-year-old male who presents ER with above-stated complaint. IV was established blood was obtained. Labs show no significant leukocytosis. No anemia. BMP with a slightly elevated chloride at 109. Creatinine was slightly up at 1.7 from baseline 1.4. LFTs bilirubin was unremarkable. Troponin was negative. TSH was unremarkable. COVID was negative. CT head and chest x-ray were clean. EKG was nondiagnostic. With his past medical history this is likely vasovagal however he was outside exerting himself and he does have multiple risk factors and consequently I discussed with the hospitalist for further observation. Nothing to suggest PE as he had noted shortness of breath or chest pain. Triage Nursing notes reviewed. Limited review of prior medical records performed Vital Signs: reviewed and remarkable for no significant abnormalities Differential diagnosis: Differential diagnosis includes etiologies such as vasovagal event, infection, hypoglycemia, electrolyte abnormalities, cardiac sources, intracerebral event, toxicologic, neurologic, as well as others were entertained. ER treatment provided: See below Diagnostics interpreted by me: ECG: Sinus bradycardia rate of 52 Normal axis No PVCs QTC 416 Cardiac Monitoring: An order was placed for continuous cardiac monitoring. The monitor shows a rate of 60 with sinus rhythm. Laboratory studies: As stated above and show below. Imaging studies: CT head was negative Chest x-ray was clean Consultation(s): Discussed with Brooklynn Sepulveda for further evaluation Procedures: none Critical Care: None Past Med/Surg History Medical History Abdominal aortic aneurysm Holm disease BPH (benign prostatic hyperplasia) CAD (coronary artery disease) Colon polyp Dizziness Hearing loss bilat hearing aids HTN (hypertension) Hyperlipidemia Left ventricular hypertrophy Tinnitus Tobacco abuse history - not current Tremor Tricuspid regurgitation Umbilical hernia Surgical History H/O wisdom tooth extraction History of prostate biopsy (07/23/20) History of tonsillectomy and adenoidectomy as a child age 5 Hx of CABG (05/2006) Triple (Analy) Family History Father , Passed age 84 of unknown Prostate cancer, Onset Age: 60 Radiation then had recurrence and had prostatectomy Colon cancer, Onset Age: 75 Resection with Colostomy Mother , Passed age 83 of CHF No problems noted. Sister , Passed age 75 of "heart complications" No problems noted. Son No problems noted. Daughter No problems noted. Social History Smoking Status: Current every day smoker Tobacco Type: Cigarettes packs per day: 1; Years Smoked: 45; Cigarettes Per Day: 1PPD Smoker/quit 4 years ago; Second Hand Exposure: No; Hx Alcohol Use: Yes Alcohol type: beer and wine Alcohol Intake Frequency: 2-3 x/Week Hx Substance Use: No Preferred Language: Albanian Visual Impairment: No Limitations Hearing Ability: Hard of Hearing Manager Technology Required: No Beliefs That Will Affect Care: None marital status: Current Living Situation: Spouse Current Living Situation Comment: Lives at home w/ Spouse current occupational status: retired current occupation: Retired [employer] Feels Safe at Home: Yes Childhood Exposure to Second-Hand Smoke: Yes (Father smoked in home ) caffeine: No during the past year weight has: remained stable Dental Care, Regularly: Yes Assistive Devices: None Allergies Allergies Allergy/AdvReac Type Severity Reaction Status Date / Time No Known Allergies Allergy Verified 08/26/21 19:29 Home Meds Home Medications Medication Instructions Recorded Confirmed aspirin 81 mg tablet,delayed 81 mg PO DAILY 06/24/20 08/26/21 release atorvastatin 80 mg tablet 80 mg PO QPM 06/24/20 08/26/21 coenzyme Q10 200 mg capsule 200 mg PO DAILY 06/24/20 08/26/21 lisinopril 10 mg tablet 10 mg PO DAILY 06/24/20 08/26/21 multivitamin 1 tab PO DAILY 06/24/20 08/26/21 fluorouracil 5 % topical cream 1 applic TOPICAL BID PRN 08/14/20 08/26/21 omega 0-[id number]-[id number]-fish oil 100 1 cap PO DAILY cap 08/14/20 08/26/21 mg-160 mg-1,000 mg capsule (Fish Oil) metoprolol succinate 25 mg 25 mg PO DAILY 11/06/20 08/26/21 tablet,extended release 24 hr tamsulosin 0.4 mg capsule 0.4 mg PO HS cap 07/10/21 08/26/21 Results & Data (ED) Vital Signs Vital Signs - 24 hr 08/26/21 16:55 08/26/21 17:00 08/26/21 17:03 Temperature 36.6 C Temperature Source Oral Pulse Rate 54 L 54 L 54 L Pulse Rate [Apical] Pulse Rate from SpO2 Sensor 54 L Pulse Rhythm Regular Regular Pulse Rhythm [Apical] Pulse Strength Normal Respiratory Rate 21 24 21 Respiratory Effort / Characteristics Non-Labored Respiratory Depth Normal Respiratory Pattern Regular Blood Pressure 136/65 Blood Pressure [Left Arm] Blood Pressure Mean 88 Blood Pressure Mean [Left Arm] Blood Pressure Position Sitting Pulse Oximetry 98 96 98 Oxygen Delivery Method Room Air Room Air Sepsis Recent Fever Within 48 Hours No Sepsis New/Unexplained Change in Mental Status No Sepsis Action Taken by Nursing No Action Required 08/26/21 18:00 08/26/21 18:20 08/26/21 18:28 Temperature Temperature Source Pulse Rate 54 L 52 L Pulse Rate [Apical] 52 L Pulse Rate from SpO2 Sensor 54 L 54 L Pulse Rhythm Pulse Rhythm [Apical] Regular Pulse Strength Respiratory Rate 22 16 Respiratory Effort / Characteristics Non-Labored Respiratory Depth Normal Respiratory Pattern Blood Pressure 127/73 Blood Pressure [Left Arm] 137/77 Blood Pressure Mean 91 Blood Pressure Mean [Left Arm] 97 Blood Pressure Position Pulse Oximetry 97 99 99 Oxygen Delivery Method Room Air Room Air Sepsis Recent Fever Within 48 Hours Sepsis New/Unexplained Change in Mental Status Sepsis Action Taken by Nursing 08/26/21 18:30 08/26/21 19:00 08/26/21 19:30 Temperature Temperature Source Pulse Rate 49 L 60 55 L Pulse Rate [Apical] Pulse Rate from SpO2 Sensor 53 L 61 Pulse Rhythm Pulse Rhythm [Apical] Pulse Strength Respiratory Rate 16 24 19 Respiratory Effort / Characteristics Respiratory Depth Respiratory Pattern Blood Pressure 137/77 149/60 H 154/83 H Blood Pressure [Left Arm] Blood Pressure Mean 97 89 106 Blood Pressure Mean [Left Arm] Blood Pressure Position Pulse Oximetry 99 99 Oxygen Delivery Method Sepsis Recent Fever Within 48 Hours Sepsis New/Unexplained Change in Mental Status Sepsis Action Taken by Nursing 08/26/21 20:00 08/26/21 20:30 08/26/21 21:00 Temperature Temperature Source Pulse Rate 52 L 68 59 L Pulse Rate [Apical] Pulse Rate from SpO2 Sensor 53 L Pulse Rhythm Pulse Rhythm [Apical] Pulse Strength Respiratory Rate 18 20 19 Respiratory Effort / Characteristics Respiratory Depth Respiratory Pattern Blood Pressure 168/83 H 158/85 H 141/88 H Blood Pressure [Left Arm] Blood Pressure Mean 111 109 105 Blood Pressure Mean [Left Arm] Blood Pressure Position Pulse Oximetry 99 Oxygen Delivery Method Sepsis Recent Fever Within 48 Hours Sepsis New/Unexplained Change in Mental Status Sepsis Action Taken by Nursing 08/26/21 21:30 08/26/21 22:00 Temperature Temperature Source Pulse Rate 71 57 L Pulse Rate [Apical] Pulse Rate from SpO2 Sensor 69 57 L Pulse Rhythm Pulse Rhythm [Apical] Pulse Strength Respiratory Rate 16 15 Respiratory Effort / Characteristics Respiratory Depth Respiratory Pattern Blood Pressure 134/65 127/70 Blood Pressure [Left Arm] Blood Pressure Mean 88 89 Blood Pressure Mean [Left Arm] Blood Pressure Position Pulse Oximetry 93 92 Oxygen Delivery Method Room Air Room Air Sepsis Recent Fever Within 48 Hours Sepsis New/Unexplained Change in Mental Status Sepsis Action Taken by Nursing Laboratory Data Result diagrams: 08/26/21 16:52 08/26/21 16:52 Lab Results 08/26/21 08/26/21 08/26/21 Range/Units 16:52 16:52 16:52 WBC 8.11 (4.8-10.8) K/uL RBC 4.03 L (4.7-6.1) M/uL Hgb 13.0 L (14.0-18.0) g/dL Hct 38.4 L (42-52) % MCV 95.3 (80-100) fL MCH 32.3 (25-34) pg MCHC 33.9 (32-36) g/dL RDW Std Deviation 47.6 H (36.4-46.3) fL RDW Coeff of Sofiya 13.7 (11.5-14.5) % Plt Count 247 (130-400) K/uL MPV 10.4 (7.4-10.4) fL Immature Gran % (Auto) 0.1 % Neut % (Auto) 75.7 % Lymph % (Auto) 13.2 % [place] % (Auto) 8.0 % Eos % (Auto) 2.6 % Baso % (Auto) 0.4 % Neut # (Auto) 6.14 (1.4-6.5) K/uL Lymph # (Auto) 1.07 L (1.2-3.4) K/uL [place] # (Auto) 0.65 H (0.11-0.59) K/uL Eos # (Auto) 0.21 (0-0.5) K/uL Baso # (Auto) 0.03 (0-0.2) K/uL Immature Gran # (Auto) 0.01 (0.00-0.02) K/uL Sodium 139 (136-145) mmol/L Potassium 4.6 (3.5-5.1) mmol/L Chloride 109 H (98-107) mmol/L Carbon Dioxide 23 (21-32) mmol/L Anion Gap 7 (3-11) BUN 45 H (6-23) mg/dl Creatinine 1.78 H (0.6-1.4) mg/dl Est Cr Clr Drug Dosing 43.1 ml/min Est GFR ( Amer) 43.5 ml/min Est GFR (Non-Af Amer) 37.5 ml/min BUN/Creatinine Ratio 25.3 H (10-20) Glucose 124 H (70-99(Fasting)) mg/dl Calcium 9.2 (8.5-10.1) mg/dl Magnesium 1.8 (1.7-2.4) mg/dl Total Bilirubin 0.5 (0.2-1.0) mg/dl AST 17 (13-39) U/L ALT 18 (7-52) U/L Alkaline Phosphatase 57 (34-104) U/L Troponin I High Sens (0-20) pg/ml Total Protein 6.5 (6.0-8.3) gm/dl Albumin 4.1 (3.4-5.0) gm/dl Globulin 2.4 L (2.5-4.0) gm/dl Albumin/Globulin Ratio 1.7 (0.9-2) TSH 1.920 (0.300-4.500) uIu/ml SARS-CoV-2, RNA, NAAT (NEGATIVE) 08/26/21 08/26/21 Range/Units 16:52 19:22 WBC (4.8-10.8) K/uL RBC (4.7-6.1) M/uL Hgb (14.0-18.0) g/dL Hct (42-52) % MCV (80-100) fL MCH (25-34) pg MCHC (32-36) g/dL RDW Std Deviation (36.4-46.3) fL RDW Coeff of Sofiya (11.5-14.5) % Plt Count (130-400) K/uL MPV (7.4-10.4) fL Immature Gran % (Auto) % Neut % (Auto) % Lymph % (Auto) % [place] % (Auto) % Eos % (Auto) % Baso % (Auto) % Neut # (Auto) (1.4-6.5) K/uL Lymph # (Auto) (1.2-3.4) K/uL [place] # (Auto) (0.11-0.59) K/uL Eos # (Auto) (0-0.5) K/uL Baso # (Auto) (0-0.2) K/uL Immature Gran # (Auto) (0.00-0.02) K/uL Sodium (136-145) mmol/L Potassium (3.5-5.1) mmol/L Chloride (98-107) mmol/L Carbon Dioxide (21-32) mmol/L Anion Gap (3-11) BUN (6-23) mg/dl Creatinine (0.6-1.4) mg/dl Est Cr Clr Drug Dosing ml/min Est GFR ( Amer) ml/min Est GFR (Non-Af Amer) ml/min BUN/Creatinine Ratio (10-20) Glucose (70-99(Fasting)) mg/dl Calcium (8.5-10.1) mg/dl Magnesium (1.7-2.4) mg/dl Total Bilirubin (0.2-1.0) mg/dl AST (13-39) U/L ALT (7-52) U/L Alkaline Phosphatase (34-104) U/L Troponin I High Sens 4.5 (0-20) pg/ml Total Protein (6.0-8.3) gm/dl Albumin (3.4-5.0) gm/dl Globulin (2.5-4.0) gm/dl Albumin/Globulin Ratio (0.9-2) TSH (0.300-4.500) uIu/ml SARS-CoV-2, RNA, NAAT NEGATIVE (NEGATIVE) Administered Medications Discontinued Medications Sodium Chloride (Nss 1000ml) 1,000 mls @ 999 mls/hr IV .Q1H1M ONE Stop: 08/26/21 18:56 Last Infusion: 08/26/21 19:18 Dose: 0 mls/hr Documented by: [id number] Admin: 08/26/21 18:18 Dose: 999 mls/hr Documented by: [id number] Sodium Chloride (Nss 1000ml) 500 mls @ 999 mls/hr IV .Q31M ONE Stop: 08/26/21 19:41 Last Infusion: 08/26/21 20:21 Dose: 0 mls/hr Documented by: [id number] Admin: 08/26/21 19:17 Dose: 999 mls/hr Documented by: [id number] Imaging Data Radiologist's Impression: Head CT 08/26/21 17:56 CT head/brain wo con CLINICAL HISTORY: syncope Technique: Contiguous axial CT images of the head were acquired from the base of the skull to the vertex without intravenous contrast administration. Images were viewed in brain, subdural and bone windows. Automated dose lowering techniques and/or adjustment according to patient size were utilized for this exam. Comparison: Comparison is made to CTA head 09/25/2020 Findings: Areas of decreased attenuation are present in the periventricular and subcortical white matter bilaterally consistent with small vessel ischemic disease. Generalized cerebral atrophy with commensurate enlargement of the ventricles, sulci, and cisterns is also present. There is no acute intracranial hemorrhage or evidence of acute territorial infarction. No shift of the midline structures, mass effect, or extra-axial abnormalities are shown. Atherosclerotic calcifications are present in the intracranial segments of the internal carotid arteries. Imaged portions of the paranasal sinuses and mastoid air cells are clear. The orbits appear normal. There are no acute fractures of the calvaria or scalp swelling. Impression: No acute intracranial hemorrhage, no evidence of acute territorial infarction or other acute intracranial disease process. ACT 112: Negative or not required by law. Electronically signed by: Yazan Chand M.D. 08/26/2021 6:12 PM Chest X-Ray 08/26/21 19:06 XR chest 1V portable CLINICAL HISTORY: syncope TECHNIQUE: Single frontal radiograph of the chest was obtained. Comparison: Comparison is made to chest radiograph 09/25/2020 FINDINGS: Median sternotomy wires are unchanged. Cardiomegaly is noted. The lungs are clear. No evidence of pleural effusion or pneumothorax. IMPRESSION: No acute chest disease. Cardiomegaly is noted. ACT 112: Negative or not required by law. Electronically signed by: Yazan Chand M.D. 08/26/2021 7:19 PM Discharge Plan Visit Data Chief Complaint: Syncope ED Provider: Raghav Butt Discharge Problem: Syncope, Anemia, CHRIS (acute kidney injury), High serum chloride Forms Stand Alone Forms: My [facility] Mobile Card Prescriptions Prescriptions: No Action metoprolol succinate 25 mg tablet extended release 24 hr 25 mg PO DAILY RF: 0 tamsulosin 0.4 mg capsule 0.4 mg PO HS RF: 0 multivitamin Tablet 1 tab PO DAILY RF: 0 atorvastatin 80 mg tablet 80 mg PO QPM RF: 0 lisinopril 10 mg tablet 10 mg PO DAILY RF: 0 coenzyme Q10 200 mg capsule 200 mg PO DAILY RF: 0 aspirin 81 mg tablet,delayed release (DR/EC) 81 mg PO DAILY RF: 0 fluorouracil 5 % cream 1 applic topical BID PRN (Reason: Skin Irritation) RF: 0 Fish Oil 100-160-1,000 mg capsule 1 cap PO DAILY RF: 0 Referrals Referrals: Rodri Cruz MD [Primary Care Provider] - Discharge Problem: Syncope Qualifiers: Syncope type: unspecified Qualified Code(s): R55 - Syncope and collapse Anemia Qualifiers: Anemia type: unspecified type Qualified Code(s): D64.9 - Anemia, unspecified
--- NOTE | 2021-08-26 18:13 | CT Scan Report ---
CT head/brain wo con CLINICAL HISTORY: syncope Technique: Contiguous axial CT images of the head were acquired from the base of the skull to the ester zain without intravenous contrast administration. Images were viewed in brain, subdural and [facility] . Automated dose lowering techniques and/or adjustment according to patient size were utilized for this exam. Comparison: Comparison is made to CTA head 09/25/2020 Findings: Areas of decreased attenuation are present in the periventricular and subcortical white matter bilate rally consistent with small vessel ischemic disease. Generalized cerebral atrophy with commensurate e nlargement of the ventricles, sulci, and cisterns is also present. There is no acute intracranial hem orrhage or evidence of acute territorial infarction. No shift of the midline structures, mass effect, or extra-axial abnormalities are shown. Atherosclerotic calcifications are present in the intracran ial segments of the internal carotid arteries. Imaged portions of the paranasal sinuses and mastoid air cells are clear. The orbits appear normal. There are no acute fractures of the calvaria or scalp swelling. Impression: No acute intracranial hemorrhage, no evidence of acute territorial infarction or other acute intracra nial disease process. ACT 112: Negative or not required by law. Electronically signed by: Yazan Chand M.D. 08/26/2021 6:12 PM
[2021-08-26] MEDS ORDERED: SODIUM CHLORIDE 0.9% 1000ML 500 ML IV ONE (19:11)
--- NOTE | 2021-08-26 19:20 | XRay Report ---
XR chest 1V portable CLINICAL HISTORY: syncope TECHNIQUE: Single frontal radiograph of the chest was obtained. Comparison: Comparison is made to chest radiograph 09/25/2020 FINDINGS: Median sternotomy wires are unchanged. Cardiomegaly is noted. The lungs are clear. No evidence of ple ural effusion or pneumothorax. IMPRESSION: No acute chest disease. Cardiomegaly is noted. ACT 112: Negative or not required by law. Electronically signed by: Yazan Chand M.D. 08/26/2021 7:19 PM
--- NOTE | 2021-08-26 19:37 | History & Physical Report ---
Date of Service August 26, 2021 Assessment & Plan (1) Syncope: Plan: 71 year old male with CAD s/p CABGx3, prostate cancer in remission, HTN, HLD, bradycardia who presents w/ 2 syncopal episodes earlier today. - syncope workup. shaking most likely from syncope. lower suspicion for seizure w/o fam hx or postictal. lower suspicion for PE in absence of dyspnea or desa turation - considered convulsive syncope, vasovagal, orthostatic - less c/w cardiac syncope, migraine, seizure, mass/mets - because of CAD hx, will check TTE w/ bubble study and carotid dopplers - [place] syncope score: -1 point, low risk - check orthostatic vitals in AM - monitor on telemetry (2) CHRIS (acute kidney injury): Plan: - reviewed [facility] records - uptrending Cr 1.32 (06/16/20) -> 1.40 (12/29/20) -> 1.56 (06/30/21) - 1.78 Cr this admission - hold home lisinopril - avoid nsaids and nephrotoxic agents - continue home baby asa daily for CAD - check UA. did not order FeNa labs at this time (3) HTN (hypertension): Plan: - hold lisinopril in setting of CHRIS. 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 a1c 6.3. chol 132, ldl 74, hdl 43, TG 75 (6) Anemia: Plan: - stable from 06/2021 (13.1). follow CBC (7) Hyperlipidemia: Plan: - continue home statin (8) Bradycardia: Plan: - hold home metoprolol in context of syncope. patient denies hx of afib or arrhythmias. presumed for HTN (9) Prostate cancer: Plan: - in remission, s/p XRT (10) Actinic keratosis: Plan: - has 5% FU cream on home med list - pharmacist inquired because this is not supposed to be sued as PRN medication, but rather a one time several week course - per [facility] records review, patient was rx'd this in 2019 for actinic kearatoses at his temples. - currently held. clarify w/ patient Plan: FEN/GI: HH. No IV fluids.?? ppx: sq heparin code: full dispo: med tele History of Present Illness Chief Complaint: syncope Primary Care Provider: Rodri Cruz MD 71 year old male with CAD s/p CABGx3, prostate cancer in remission, HTN, HLD, bradycardia who presents w/ 2 syncopal episodes earlier today. He had been working in the yard for 3.5 hours, raking leaves. No dizziness or blurry vision. He felt hot and sweaty from working. He had slight headache that he attributes to poor PO intake during the day. syncope x2. He went indoors to take a break and went to the bathroom to urinate. During urination, he lost consciousness for 2-3 min. His came in after she heard the thud. Patient had some shaking motions and was not responsive to verbal stimuli. After 2-3 minutes, he appeared to wake up for a few seconds before another minute of loss of consciousness. No shaking observed during this episode. No postictal symptoms such as headache, confusion no rubin or confusion, tinnitus, blurry vision, or numbness. Patient denies prodromal symptoms. His noted that he appeared pale. Patient denies hx migraines. He denies any cp, sob, palpitations today. No recent illness. There is no family hx of seizures. He believes he had a similar presyncopal vs syncopal episode at home 2 years ago that lasted for a few seconds and also occurred after working outside and in context of likely dehydration. Patient had a presyncopal vs syncope episode while obtaining a CT or MRI scan in 11/2020. He smokes up to half a pack daily. He has had 2nd covid booster. Denies hx of head injuries. Denies hx of afib. Denies hx VTE. He has been on metoprolol for a long time and believes it is for his blood pressure. Hx obtained from patient and who had witnessed the episodes. ED course: ecg, trop, and CT head reassuring. 1.5L NSS bolus. Allergies Allergy/AdvReac Type Severity Reaction Status Date / Time No Known Allergies Allergy Verified 08/26/21 19:29 Home Medications Medication Instructions Recorded Confirmed Type aspirin 81 mg tablet,delayed 81 mg PO DAILY 06/24/20 08/26/21 History release atorvastatin 80 mg tablet 80 mg PO QPM 06/24/20 08/26/21 History coenzyme Q10 200 mg capsule 200 mg PO DAILY 06/24/20 08/26/21 History lisinopril 10 mg tablet 10 mg PO DAILY 06/24/20 08/26/21 History multivitamin 1 tab PO DAILY 06/24/20 08/26/21 History fluorouracil 5 % topical cream 1 applic TOPICAL BID PRN 08/14/20 08/26/21 History omega 1-zkm-imx-fish oil 100 1 cap PO DAILY cap 08/14/20 08/26/21 History mg-160 mg-1,000 mg capsule (Fish Oil) metoprolol succinate 25 mg 25 mg PO DAILY 11/06/20 08/26/21 History tablet,extended release 24 hr tamsulosin 0.4 mg capsule 0.4 mg PO HS cap 07/10/21 08/26/21 History Past Med/Surg History Medical History (Updated 08/27/21 @ 05:59 by Jer Acuña MD) Abdominal aortic aneurysm Holm disease BPH (benign prostatic hyperplasia) CAD (coronary artery disease) Colon polyp Dizziness Hearing loss bilat hearing aids HTN (hypertension) Hyperlipidemia Left ventricular hypertrophy Tinnitus Tobacco abuse Tremor Tricuspid regurgitation Umbilical hernia Surgical History H/O wisdom tooth extraction History of prostate biopsy (07/23/20) History of tonsillectomy and adenoidectomy as a child age 5 Hx of CABG (05/2006) Triple (Analy) Family History Father , Passed age 84 of unknown Prostate cancer, Onset Age: 60 Radiation then had recurrence and had prostatectomy Colon cancer, Onset Age: 75 Resection with Colostomy Mother , Passed age 83 of CHF No problems noted. Sister , Passed age 75 of "heart complications" No problems noted. Son No problems noted. Daughter No problems noted. Social History (Updated 08/27/21 @ 00:15 by Jer Acuña MD) Smoking Status: Current every day smoker Tobacco Type: Cigarettes packs per day: 0.5; Years Smoked: 45; Cigarettes Per Day: 7; Second Hand Exposure: No; Hx Alcohol Use: Yes Alcohol type: beer and wine Alcohol Intake Frequency: 2-3 x/Week Hx Substance Use: No Preferred Language: [place]i Communication Ability: Effective Visual Impairment: No Limitations Hearing Ability: Hard of Hearing Automation Test Developer Required: No Beliefs That Will Affect Care: None marital status: Current Living Situation: Spouse Current Living Situation Comment: Lives at home w/ Spouse current occupational status: retired 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 NAD. Cooperative. Conversational. HEENT: Atraumatic, normocephalic. EOMI. PERRL. No nystagmus. Oropharynx w/o erythema or exudate. Pulm: CTAB. -wheezes, -rales, -rhonchi. No respiratory distress. Cardiac: RRR, -mrg. Trace ble Abdominal: Nontender, nondistended, soft. Integ: Warm, dry, intact. Msk: Moving all extremities. Neuro: CN II-XII intact. Normal strength and sensation of extremities. No dysmetria. Results & Data Results & Data ([facility]) Vital Signs (Past 12 Hours) Vital Signs Temp Pulse Pulse Resp BP BP Pulse Ox 08/26/21 18:28 52 L 16 137/77 99 08/26/21 17:03 54 L 21 98 08/26/21 16:55 36.6 C 54 L 21 136/65 98 Laboratory Results Hb 13. Cr 1.78 08/26/21 16:52 08/26/21 16:52 Cardiac Enzymes 08/26/21 Range/Units 16:52 AST 17 (13-39) U/L CBC 08/26/21 Range/Units 16:52 WBC 8.11 (4.8-10.8) K/uL RBC 4.03 L (4.7-6.1) M/uL Hgb 13.0 L (14.0-18.0) g/dL Hct 38.4 L (42-52) % Plt Count 247 (130-400) K/uL Neut # (Auto) 6.14 (1.4-6.5) K/uL Lymph # (Auto) 1.07 L (1.2-3.4) K/uL [place] # (Auto) 0.65 H (0.11-0.59) K/uL Eos # (Auto) 0.21 (0-0.5) K/uL Baso # (Auto) 0.03 (0-0.2) K/uL Comprehensive Metabolic Panel 08/26/21 Range/Units 16:52 Sodium 139 (136-145) mmol/L Potassium 4.6 (3.5-5.1) mmol/L Chloride 109 H (98-107) mmol/L Carbon Dioxide 23 (21-32) mmol/L BUN 45 H (6-23) mg/dl Creatinine 1.78 H (0.6-1.4) mg/dl Glucose 124 H (70-99(Fasting)) mg/dl Calcium 9.2 (8.5-10.1) mg/dl AST 17 (13-39) U/L ALT 18 (7-52) U/L Alkaline Phosphatase 57 (34-104) U/L Total Protein 6.5 (6.0-8.3) gm/dl Albumin 4.1 (3.4-5.0) gm/dl Intake and Output 08/26/21 08/26/21 08/26/21 06:59 14:59 22:59 Intake Total 1000 / 1000 Balance 1000 / 1000 Intake: IV 1000 / 1000 Sodium Chloride 0.9% 1000ML 1, 1000 / 1000 000 ml @ 999 mls/hr IV .Q1H1M ONE Rx#:[id number] Other: Weight 90.7 kg Weight Measurement Method Built in [facility] Patient Weight 08/27/21 06:59 Weight 90.7 kg Diagnostic Findings Head CT 08/26/21 17:56 CT head/brain wo con CLINICAL HISTORY: syncope Technique: Contiguous axial CT images of the head were acquired from the base of the skull to the vertex without intravenous contrast administration. Images were viewed in brain, subdural and bone windows. Automated dose lowering techniques and/or adjustment according to patient size were utilized for this exam. Comparison: Comparison is made to CTA head 09/25/2020 Findings: Areas of decreased attenuation are present in the periventricular and subcortical white matter bilaterally consistent with small vessel ischemic disease. Generalized cerebral atrophy with commensurate enlargement of the ventricles, sulci, and cisterns is also present. There is no acute intracranial hemorrhage or evidence of acute territorial infarction. No shift of the midline structures, mass effect, or extra-axial abnormalities are shown. Atherosclerotic calcifications are present in the intracranial segments of the internal carotid arteries. Imaged portions of the paranasal sinuses and mastoid air cells are clear. The orbits appear normal. There are no acute fractures of the calvaria or scalp swelling. Impression: No acute intracranial hemorrhage, no evidence of acute territorial infarction or other acute intracranial disease process. ACT 112: Negative or not required by law. Electronically signed by: Yazan Chand M.D. 08/26/2021 6:12 PM Chest X-Ray 08/26/21 19:06 XR chest 1V portable CLINICAL HISTORY: syncope TECHNIQUE: Single frontal radiograph of the chest was obtained. Comparison: Comparison is made to chest radiograph 09/25/2020 FINDINGS: Median sternotomy wires are unchanged. Cardiomegaly is noted. The lungs are clear. No evidence of pleural effusion or pneumothorax. IMPRESSION: No acute chest disease. Cardiomegaly is noted. ACT 112: Negative or not required by law. Electronically signed by: Yazan Chand M.D. 08/26/2021 7:19 PM ECG Additional Comments: ecg per my read: sinus raheel 52. Normal axis and intervals. No significant change compared to 09/26/20 ecg. Code Status & VTE Plan Code Status full VTE Prophylaxis Plan VTE Prophylaxis will be ordered: Yes Supervising Physician Co-Signing Physician Notes Patient seen and examined, chart reviewed, case discussed with Dr. Acuña and I agree with the assessment and plan as above. In brief, patient is a 71yo male with history of CAD s/p CABG x 3V in 2006, HTN and HLP presenting after 2 syncopal episodes at home. Some shaking noted by . No prodrome. No post-ictal state. Unremarkable exam - afebrile, HD stable, NAD +S1/S2, regular, no m/r/g Lungs CTA Abd soft, NT/ND Ext - warm, well perfused Neuro - no deficits Labs and images reviewed. EKG with SB at 52, normal axis, WX=424, QRS=98, FYd=499 No acute ischemic changes Assessment/Plan - -Check 2d echo, carotid dopplers, orthostatic VS -Telemetry monitoring -Remainder as above Resident Activity Tracking Resident Involvement: Resident Care Provided Care Provided: Adult Hospital Medicine (1) CAD (coronary artery disease) Associated angina: without angina Coronary Disease-Associated Artery/Lesion type: [place] artery [place] vs. transplanted heart: [place] heart Qualified Code(s): I25.10 - Atherosclerotic heart disease of [place] coronary artery without angina pectoris (2) Anemia Anemia type: unspecified type Qualified Code(s): D64.9 - Anemia, unspecified (3) Hyperlipidemia Hyperlipidemia type: unspecified Qualified Code(s): E78.5 - Hyperlipidemia, unspecified (4) Syncope Syncope type: unspecified Qualified Code(s): R55 - Syncope and collapse (5) HTN (hypertension) Hypertension type: unspecified Qualified Code(s): I10 - Essential (primary) hypertension
--- NOTE | 2021-08-26 22:53 | Billing Data ---
Date of Service August 26, 2021 Coding Level of Care Code INT OBSERVATION CARE 50M LVL 2
[2021-08-26] MEDS ORDERED: TAMSULOSIN HCL 0.4 MG CAP PO STA (23:02)
[2021-08-26] MEDS ORDERED: ATORVASTATIN 40 MG TAB PO STA (23:02)
[2021-08-26] MEDS ORDERED: ONDANSETRON INJ 2 MG/ML 2 ML VIAL IV PRN (23:30)
[2021-08-27 01:21] LABS: Hematocrit (blood only) 37.6 % (42-52); Hemoglobin 12.7 g/dL (14.0-18.0); Mean Corpuscular Hemoglobin 32.2 pg (25-34); Mean Corpuscular Hgb Conc 33.8 g/dL (32-36); Mean Corpuscular Volume 95.2 fL (80-100); Mean Platelet Volume 10.5 fL (7.4-10.4); Platelet Count 237 K/uL (130-400); RDW Coefficient of Variation 13.8 % (11.5-14.5); RDW Standard Deviation 48.4 fL (36.4-46.3); Red Blood Count 3.95 M/uL (4.7-6.1); White Blood Count 7.82 K/uL (4.8-10.8)
[2021-08-27 04:54] LABS: Appearance Urine Clear (Clear); Bacteria Urine Automated Negative (Negative); Bilirubin Urine Negative (Negative); Blood Urine Negative (Negative); Color Urine Yellow; Glucose Urine UA Negative (Negative); Ketones Urine Negative (Negative); Leukocyte Esterase Urine Negative (Negative); Nitrite Urine Negative (Negative); Protein Urine 2+ (Negative); RBC Urine Automated 0-4 /hpf (0-4); Specific Gravity Urine 1.017 (1.000-1.030); Urobilinogen Urine Negative (Negative)
[2021-08-27] MEDS ORDERED: HEPARIN SOD 5,000 UNIT/0.5 ML VIAL SQ SCH (06:00)
--- NOTE | 2021-08-27 08:48 | Ultrasound Report ---
CAROTID ARTERY ULTRASOUND CLINICAL HISTORY: syncope COMPARISON STUDY: CTA of the neck September 25, 2020. TECHNIQUE: Real-time, grayscale, and color Doppler sonography of the carotid and vertebral arteries w as performed. Images were viewed in the transverse and longitudinal planes. FINDINGS: There is moderate atherosclerotic plaque. Velocity measurements are listed below. COMMON CAROTID PEAK SYSTOLIC VELOCITY (CM/S): RIGHT 95 LEFT 95 ICA PEAK SYSTOLIC VELOCITY (CM/S): RIGHT 83 LEFT 91 Systolic ratios between the internal to common carotid arteries are normal. Antegrade flow is seen in the vertebral arteries. The external carotid arteries are patent. Incidenta l note is made of several thyroid nodules, the largest of which is a 2.9 cm left lobe nodule. IMPRESSION: No evidence for a hemodynamically significant stenosis. ACT 112: Negative or not required by law. Electronically signed by: Brannon Padilla M.D. 08/27/2021 8:47 AM
[2021-08-27] MEDS ORDERED: lisinopril 10 MG TAB PO SCH (09:00)
[2021-08-27] MEDS ORDERED: ASPIRIN 81 MG ECTAB PO SCH (09:00)
--- NOTE | 2021-08-27 10:46 | Med Student Discharge Summary ---
Date of Service August 27, 2021 Admission HPI Per Admitting Provider 71 year old male with CAD s/p CABGx3, prostate cancer in remission, HTN, HLD, bradycardia who presents w/ 2 syncopal episodes earlier today. He had been working in the yard for 3.5 hours, raking leaves. No dizziness or blurry vision. He felt hot and sweaty from working. He had slight headache that he attributes to poor PO intake during the day. syncope x2. He went indoors to take a break and went to the bathroom to urinate. During urination, he lost consciousness for 2-3 min. His came in after she heard the thud. Patient had some shaking motions and was not responsive to verbal stimuli. After 2-3 minutes, he appeared to wake up for a few seconds before another minute of loss of consciousness. No shaking observed during this episode. No postictal symptoms such as headache, confusion no rubin or confusion, tinnitus, blurry vision, or numbness. Patient denies prodromal symptoms. His noted that he appeared pale. Patient denies hx migraines. He denies any cp, sob, palpitations today. No recent illness. There is no family hx of seizures. He believes he had a similar presyncopal vs syncopal episode at home 2 years ago that lasted for a few seconds and also occurred after working outside and in context of likely dehydration. Patient had a presyncopal vs syncope episode while obtaining a CT or MRI scan in 11/2020. He smokes up to half a pack daily. He has had 2nd covid booster. Denies hx of head injuries. Denies hx of afib. Denies hx VTE. He has been on metoprolol for a long time and believes it is for his blood pressure. Hx obtained from patient and who had witnessed the episodes. ED course: ecg, trop, and CT head reassuring. 1.5L NSS bolus. Admission Exam (Per Admitting) Constitutional General: A&Ox4. NAD. Cooperative. Conversational. HEENT: Atraumatic, normocephalic. EOMI. PERRL. No nystagmus. Oropharynx w/o erythema or exudate. Pulm: CTAB. -wheezes, -rales, -rhonchi. No respiratory distress. Cardiac: RRR, -mrg. Trace ble Abdominal: Nontender, nondistended, soft. Integ: Warm, dry, intact. Msk: Moving all extremities. Neuro: CN II-XII intact. Normal strength and sensation of extremities. No dysmetria. Discharge Exam General: Alert and oriented x 3. No acute distress. Pulm: B/t effort, clear to auscultation. no wheezes, rales, rhonchi. Cardiac: Regular rate and rhythm, no murmurs/rubs/gallops. No lower extremity edema Abdominal: Nl bowel sounds, Nontender, nondistended, soft. Discharge Data Consultations 08/26/21 19:20 ED Decision to Admit Stat Hospital Course (1) Syncope: 71 year old male with CAD s/p CABGx3, prostate cancer in remission, HTN, HLD, bradycardia who presents w/ 2 syncopal episodes 1 day ago. No reoccurrence and currently stable Ddx - vasovagal, cardiac/arrhythmia, neurogenic syncope Assessment Etiology of syncope most likely vasovagal, supported by history of working out in the heat and dehydration as well as negative cardiac and neurologic work-up. Component of orthostatic hypotension also present. #1 Syncope - Most likely etiology was vasovagal considering working out in the heat and dehydration. Sinus rhythm overnight with rate running in the 60s, which appears in his normal range, and his echocardiogram showed no abnormalities. CT showed no bleed, and carotid Doppler was also normal. Thus, concerns for neurogenic or cardiac causes of syncope seem unlikely. Low suspicion for seizure as there was no postictal state. - Element of orthostatic presyncope. He notes this was worsened by his Flomax but improved since the dose was lowered. - Monitored overnight and no reoccurrence or abnormal rhythms - Managed with IV NS in the ED - Counseled on sufficient hydration and nourishment to avoid reoccurrence #2 CHRIS - uptrending Cr 1.32 (06/16/20) -> 1.40 (12/29/20) -> 1.56 (06/30/21) - 08/26: 1.78 Cr this admission - 08/27: down to 1.48 on repeat - hold home lisinopril, avoid nsaids and nephrotoxic agents, continue home baby asa daily for CAD - 08/27: UA showed 2+ proteinuria - recommend outpatient following of creatinine and urine albumin #3 HTN - hold lisinopril in setting of CHRIS. hold metoprolol in setting of bradycardia, ok to restart at home #4 Tobacco use - hold nicotine patch in setting of CHRIS and low-moderate reported use (up to 1/2 ppd) - counseled on cessation #5Coronary Artery Disease - hx of CABGx3 - most recent a1c and lipid profile 06/30/21 in [facility] system. a1c 6.3. chol 132, ldl 74, hdl 43, TG 75 #6 Anemia - 08/27: 12.7, stable from 06/2021 (13.1). follow CBC #7 Hyperlipidemia - continue home statin #8 Bradycardia - hold home metoprolol in context of syncope. patient denies hx of afib or arrhythmias. presumed for HTN #9 Prostate cancer - in remission, s/p XRT (2) CHRIS (acute kidney injury): (3) HTN (hypertension): (4) Tobacco abuse: (5) CAD (coronary artery disease): (6) Anemia: (7) Hyperlipidemia: (8) Bradycardia: (9) Prostate cancer: Follow-up with [facility] in the next 1-2 weeks Monitor creatinine and check urine albumin outpatient Consider adjusting tamsulosin due to element of orthostatic presyncope Restart home medications Discharge Plan Discharge Items Patient Disposition: Home - Self-Care Reason For Visit: SYNCOPE Discharge Diagnosis: Syncope due to dehydration Activity: Per Instructions section Non-emergency contact: Primary Care Provider and Urologist Call non-emergency contact if: you have any medication questions, your symptoms worsen and you have a fever Follow-up/Referrals: Rodri Cruz MD [Primary Care Provider] - 09/02/21 10:10 am (will see Sabrina Brumfield) Diet: Heart Healthy Addtl Attending Provider Instructions: You were admitted to the hospital for a syncope, a sudden loss of consciousness also known as fainting. You were treated with IV fluids and some workup studies were done to evaluate for the potential causes of your syncope, including an ultrasound of your heart (which was normal), an ultrasound of your carotid arteries (also normal) and an EKG to look at the rhythm of your heart (also normal), and a CT scan of the head (also normal). Because all these studies were normal, we believe the cause of your syncope was dehydration leading to reduced blood pressure at the time of your fainting. Going forward, please ensure you're well-fed and well-hydrated when you exert yourself. We also noticed your kidney function has been slightly declining over the last year according to labwork. Specifically, the creatinine value has been steadily bumping upwards (1.78 here at the hospital). This can represent chronic kidney disease and we recommend you discuss this with Dr. Cruz to evaluate for chronic kidney disease and its staging. This will likely involve more labwork including kidney function tests and urine samples. A discharge summary will be sent to your primary care physician to ensure continuity of care. Please bring this discharge summary with you to your next office appointment so that your provider can review it at that time. Follow-up appointments: Make a follow-up appointment with your PCP within the next week. It is very important that you follow up with them shortly after discharge from the hospital. Please call [phone] to schedule this appointment. We have also requested a follow up with Dr. Cruz but calling the number will very likely help you to get an appointment faster. Keep all your follow-up appointments as already scheduled. If you cannot make an appointment, notify your provider. Medications: Your medication list has been reviewed and reconciled upon discharge to ensure accuracy and continuity of care. An updated list of all your medications is included with your hospital discharge paperwork. Please review this list closely, and make note of any changes. We recommend you discuss your tamsulosin with Dr. Cruz as this may also lead to dehydration and syncope. Take your medications as instructed; do not skip a dose of your medicines. Make sure all of your doctors know every medicine you are taking (including [id number]-[id number] medicines, vitamins, and supplements). Call your primary care provider before taking any new medicines (including yrnw-wqb-[id number] medicines, vitamins, and supplements), because some of these may interact with your current medications, or may make your symptoms worse. Tell your primary care provider if you cannot afford your medications. CONTACT YOUR PRIMARY CARE PROVIDER if you experience any of the following: Lightheadedness Dizziness Vision change Drowsiness Chest pain Headache Difficulty following your treatment plan, or difficulty taking medications CALL 911 OR GO TO THE EMERGENCY DEPARTMENT if you experience any of the following: Sudden, severe abdominal pain or nausea/vomiting Severe chest pain, or chest pain that radiates (moves) to your jaw or arm Sudden, severe shortness of breath or difficulty breathing Thank you for allowing us to participate in your care. Pending Studies at Discharge: No Stand-Alone Forms: My [facility], Smoking Cessation Medications and DC Order Prescriptions: Continued metoprolol succinate 25 mg tablet extended release 24 hr 25 mg PO DAILY RF: 0 tamsulosin 0.4 mg capsule 0.4 mg PO HS RF: 0 multivitamin Tablet 1 tab PO DAILY RF: 0 atorvastatin 80 mg tablet 80 mg PO QPM RF: 0 lisinopril 10 mg tablet 10 mg PO DAILY RF: 0 coenzyme Q10 200 mg capsule 200 mg PO DAILY RF: 0 aspirin 81 mg tablet,delayed release (DR/EC) 81 mg PO DAILY RF: 0 fluorouracil 5 % cream 1 applic topical BID PRN (Reason: Skin Irritation) RF: 0 Fish Oil 100-160-1,000 mg capsule 1 cap PO DAILY RF: 0 Discharge Orders: Discharge Order (Routine); Ordered 08/27/21 Ordered By: Dianelys Patel Admission Data Admit Date/Time: 08/26/21 22:00 Attending Provider: Marizol Fabian Admit Provider: Destiny Sepulveda Primary Care Provider: Rodri Cruz Other Providers: Destiny Sepulveda Other Interventions: Discharge Summary Assessment (RN) Last Done: 08/27/21 12:29 Supervising Attestation Patient seen and examined with medical student Katelynn Heart and PGY-1 Dr. Alonzo. Agree with history, exam findings, assessment and plan of care as outlined. In brief, Mr. Hoffman is a 71 year old male with history of CABG x3, prostate cancer in remission, HTN admitted with two recent syncopal episodes. Has not had any further lightheadness or dizziness. No chest pain. Has been on tamsulosin for BPH for a long time. Does admit to some positional orthostasis at times. 1. syncope. TTE and carotid dopplers normal. Likely orthostasis vs vasovagal. 2. CHRIS on CKD. Cr improved after IVFs; however, has been slowly creeping up for several months in the outpatient setting. Can do remainder of work up as an outpatient with PCP. 3. Bradycardia. Initially beta jose guadalupe was held, but can resume on discharge. Dispo: discharge home today. Follow up with PCP office in 1-2 weeks. I personally spent 35 minutes discharge planning for this patient.
[2021-08-27 11:05] VITALS: PULSE 61; TEMP 97.9; O2SAT 97
--- NOTE | 2021-08-27 11:39 | XCELERA ---
[id number]
[2021-08-27 11:45] LABS: Albumin Globulin Ratio 1.6 (0.9-2); Albumin Level 3.8 gm/dl (3.4-5.0); Bilirubin,Total 0.5 mg/dl (0.2-1.0); Calcium 8.7 mg/dl (8.5-10.1); Creatinine Clr Calc Pharmacy 52.4 ml/min; Est GFR (African American) 54.4 ml/min; Est GFR (Non-African American) 46.9 ml/min; Globulin 2.4 gm/dl (2.5-4.0); Magnesium 1.9 mg/dl (1.7-2.4); Potassium 4.8 mmol/L (3.5-5.1); Total Protein 6.2 gm/dl (6.0-8.3)
[2021-08-27 12:30] VITALS: BP 131/71
--- NOTE | 2021-08-27 17:57 | Electrocardiogram Report ---
Test Reason : Blood Pressure : / mmHG Vent. Rate : 052 BPM Atrial Rate : 052 BPM P-R Int : 166 ms QRS Dur : 098 ms QT Int : 448 ms P-R-T Axes : 074 016 055 degrees QTc Int : 416 ms Sinus bradycardia Otherwise normal ECG When compared with ECG of 26-SEP-2020 05:09, No significant change was found Confirmed by Ernesto Mae ([id number]) on 08/27/2021 5:57:11 PM Referred By: REFERRED SELF Confirmed By:Dylan Mae
[2021-08-27] MEDS ORDERED: ATORVASTATIN 40 MG TAB PO SCH (21:00)
[2021-08-27] MEDS ORDERED: TAMSULOSIN HCL 0.4 MG CAP PO SCH (21:00)
== END 2021-08-27 13:15 | disposition home or self-care (01) ==
LOC: ED 16:36 → 2E 16:36 → SUATTDRO 22:00 → 2E 23:04